=== PATIENT | male | born 1955 | race Hispanic/Latino ===

== ENCOUNTER 2017-07-11 16:05 | Emergency (ER) | payer MEDICARE, MEDICAID ==
[~2017-07-11] VITALS: Ht 175.3 cm; Wt 79.4 kg
[~2017-07-11 16:05] MED LIST: ASPIRIN EC81 MG PO; DICLOFENAC SODI75 MG PO; JANUVIA50 MG PO; LANTUS SOL100 UNIT/1 SUB-Q; LISINOPRIL40 MG PO; LOVASTATIN40 MG PO; METFORMIN HCL1000 MG PO; NORCO 5-325 TA1 EACH PO; VITAMIN D35000 UNIT PO; ZOLPIDEM TARTRAT5 MG PO
--- NOTE | 2017-07-13 22:39 | EKG ---
[facility] [address] [place], [place] [address] Signed Normal sinus rhythm Left axis deviation Abnormal ECG When compared with ECG of 03-OCT-2016 14:15, No significant change was found Confirmed by TRA NÚÑEZ MD ([id number]) on 07/13/2017 10:39:28 PM Electronically Signed By: TRA NÚÑEZ MD 07/13/17 2239 PATIENT NAME: GIN SCALES Electrocardiogram DATE OF : 59 PHYSICIAN: TRA NÚÑEZ MD REPORT #: [id number] REPORT IS CONFIDENTIAL AND NOT TO BE RELEASED WITHOUT AUTHORIZATION
[2017-09-05] MEDS ORDERED: VICTOZA 3-0.6 MG/0.1 SUB-Q (09:29)
[2017-09-05] MEDS ORDERED: VITAMIN B122500 MCG PO (13:10)
== END 2017-07-11 18:25 | disposition home or self-care (01) ==
LOC: ED 16:05
DX: R42 Dizziness and giddiness (principal); E11.9 Type 2 diabetes mellitus without complications; I10 Essential (primary) hypertension; E78.00 Pure hypercholesterolemia, unspecified; F17.200 Nicotine dependence, unspecified, uncomplicated; Z90.49 Acquired absence of other specified parts of digestive tract; Z79.4 Long term (current) use of insulin; Z79.899 Other long term (current) drug therapy
CPT/HCPCS: 80053; 84484; 85025; 93005; 93010; 99284

== ENCOUNTER 2017-10-13 13:42 | Emergency (ER) | payer BC, MEDICARE, MEDICAID ==
[~2017-10-13] VITALS: Ht 175.3 cm; Wt 77.9 kg
--- OUTSIDE RECORDS SUMMARY | ~2017-10-13 | XMS | Clinical Summary ---
Demographics + + + | Address | [address] | | | [place] [address] | + + + | Home Phone | | + + + | Preferred Language | Unknown | + + + | Marital Status | | + + + | Anabaptism Affiliation | Unknown | + + + | Race | Unknown | + + + | Ethnic Group | Unknown | + + + Author + + + | Author | [facility] | + + + | Organization | [facility] | + + + | Address | Unknown | + + + | Phone | Unavailable | + + + Support + + +---------+ + | Name | Relationship | Address | Phone | + + +---------+ + | Jovanna Irizarry | ECON | Unknown | | + + +---------+ + Care Team Providers + +------+ + | Care Shift Commander Name | Role | Phone | + +------+ + | Solomon OtisDavis | PP | | + +------+ + Allergies Not on File Current Medications + + +-------+---------+------+------+-------+ | Prescription | Sig. | Disp. | Refills | Star | End | Statu | | | | | | t | Date | s | | | | | | Date | | | + + +-------+---------+------+------+-------+ | Cholecalciferol | Take 5,000 Units by | | | | | Activ | | 5000 units capsule | mouth daily. | | | | | e | + + +-------+---------+------+------+-------+ | aspirin 81 MG | Take 81 mg by mouth | | | | | Activ | | tablet | daily. | | | | | e | + + +-------+---------+------+------+-------+ | Zolpidem Tartrate | Place 1 tablet under | | | | | Activ | | 5 MG SUBL | the tongue daily. | | | | | e | + + +-------+---------+------+------+-------+ | insulin glargine | Inject 26 Units into | | | | | Activ | | (LANTUS) 100 UNIT/ML | the skin nightly. | | | | | e | | injection | | | | | | | + + +-------+---------+------+------+-------+ | lovastatin | Take 40 mg by mouth | | | | | Activ | | (MEVACOR) 40 MG | nightly. | | | | | e | | tablet | | | | | | | + + +-------+---------+------+------+-------+ | liraglutide | Inject 0.6 mg into | | | | | Activ | | (VICTOZA) 18 MG/3ML | the skin daily. | | | | | e | | injection | | | | | | | + + +-------+---------+------+------+-------+ | lisinopril | Take 40 mg by mouth | | | | | Activ | | (ZESTRIL) 40 MG | daily. | | | | | e | | tablet | | | | | | | + + +-------+---------+------+------+-------+ | metFORMIN | Take 1,000 mg by | | | | | Activ | | (GLUCOPHAGE) 1000 MG | mouth 2 (two) times | | | | | e | | tablet | daily with meals. | | | | | | + + +-------+---------+------+------+-------+ | diclofenac | Take 75 mg by mouth | | | | | Activ | | (VOLTAREN) 75 MG EC | 2 (two) times daily. | | | | | e | | tablet | | | | | | | + + +-------+---------+------+------+-------+ | traZODone | Take 50 mg by mouth | | | | | Activ | | (DESYREL) 50 MG | as needed for Sleep. | | | | | e | | tablet | | | | | | | + + +-------+---------+------+------+-------+ Active Problems + + + | Problem | Noted Date | + + + | Hyperlipidemia | 11/15/2016 | + + + | Hypertension | 11/15/2016 | + + + | Type 2 diabetes mellitus (HCC) | 06/06/2011 | + + + | Thoracic and lumbosacral neuritis | 07/09/2006 | + + + Family History + [...] | | + +-------+ +--------+------+ + + +---------+ + | Alcohol Use | Drinks/We | oz/Week | Comments | | | ek | | | + + +---------+ + | No | | | | + + +---------+ + + + + | Sex Assigned at | Date Recorded | | | | + + + | Not on file | | + + + Last Filed Vital Signs + + + + | Vital Sign | Reading | Time Taken | + + + + | Blood Pressure | 110/74 | 11/15/2016 11:22 AM PDT | + + + + | Pulse | 67 | 11/15/2016 11:22 AM PDT | + + + + | Temperature | - | - | + + + + | Respiratory Rate | - | - | + + + + | Oxygen Saturation | 97% | 11/15/2016 11:22 AM PDT | + + + + | Inhaled Oxygen | - | - | | Concentration | | | + + + + | Weight | 80.6 kg (177 lb 11.2 | 11/15/2016 11:22 AM PDT | | | oz) | | + + + + | Height | 175.3 cm (5' 9") | 11/15/2016 11:22 AM PDT | + + + + | Body Mass Index | 26.24 | 11/15/2016 11:22 AM PDT | + + + + Plan of Treatment + + + + + | Health Maintenance | Due Date | Last Done | Comments | + + + + + | Diabetic Eye Exam | | | | | | 7 | | | + + + + + | Diabetic Foot Exam | | | | | | 7 | | | + + + + + | Hemoglobin A1c | | | | | | 7 | | | + + + + + | Microalbumin | | | | | Screening | 7 | | | + + + + + | Vaccine: | | | | | Dtap/Tdap/Td (1 - | 6 | | | | Tdap) | | | | + + + + + | Vaccine: | | | | | Pneumococcal 19-64 | 6 | | | | (PPSV23 only) Medium | | | | | Risk (1 of 1 - | | | | | PPSV23) | | | | + + + + + | Colon Cancer | | | | | Screening | 7 | | | | (Colonoscopy) | | | | + + + + + | Vaccine: Zoster (#1) | | | | | | 7 | | | + + + + + | Vaccine: Influenza | | | | | (Season Ended) | 8 | | | + + + + + Results Not on filefrom Last 3 Months Insurance + +--------+ +------+-------+ + | Payer | Benefi | Subscriber | Type | Phone | Address | | | t Plan | ID | | | | | | / | | | | | | | Group | | | | | + +--------+ +------+-------+ + | MEDICARE | MEDICA | xxxxxxxxxx | | | [address] | | | [place] | | | | [place], [place] [phone] | | | IP-OP | | | | | + +--------+ +------+-------+ + + +--------+ +--------+ + + | Guarantor Name | Accoun | Relation to | Date | Phone | Billing Address | | | t Type | Patient | of | | | | | | | | | | + +--------+ +--------+ + + | JAYRO IRIZARRY | Person | Self [birth year] Home: | [address] | | | [place] | | [phone] [place] | | | [place] | | | [address] | [phone] | + +--------+ +--------+ + +
--- OUTSIDE RECORDS SUMMARY | ~2017-10-13 | XMS | Clinical Summary ---
Demographics + + + | Address | [address] | | | [place] [address] | + + + | Home Phone | | + + + | Preferred Language | Unknown | + + + | Marital Status | | + + + | Baptist Affiliation | Unknown | + + + [...] Phone | + + +---------+ + | Irizarry,Prakash | ECON | Unknown | | + + +---------+ + Care Team Providers + +------+ + | Care Perinatal Director Name | Role | Phone | + +------+ + PP | Unavailable | + +------+ + Allergies No Known Allergies Current Medications + + +-------+---------+------+------+-------+ | Prescription | Sig. | Disp. | Refills | Star | End | Statu | | | | | | t | Date | s | | | | | | Date | | | + + +-------+---------+------+------+-------+ | fenofibrate | Take 160 mg by mouth | | | 11/2 | | Activ | | (LOFIBRA, TRIGLIDE) | Daily. | | | 03/28 | | e | | 160 mg tablet | | | | 11 | | | + + +-------+---------+------+------+-------+ | ergocalciferol | 1 by mouth daily for | | | / | | Activ | | (ERGOCALCIFEROL) | 7 days, then 1 by | | | 03/28 | | e | | [id number] UNITS capsule | mouth once weekly | | | 11 | | | | | for 12 weeks | | | | | | + + +-------+---------+------+------+-------+ | lisinopril | 40 mg by mouth in am | | | 07/0 | | Activ | | (PRINIVIL, ZESTRIL) | and 20 mg in | | | 01/25 | | e | | 20 mg tablet | evening | | | 11 | | | + + +-------+---------+------+------+-------+ | lamoTRIgine | Take 100 mg by mouth | | | 04/08 | | Activ | | (LAMICTAL) 100 mg | 2 times daily. | | | 10/26 | | e | | tablet | | | | 11 | | | + + +-------+---------+------+------+-------+ | glucose blood | use as directed | | | 04/08 | | Activ | | test strips | daily 250.00 | | | 20 | | e | | (FREESTYLE TEST | | | | 11 | | | | STRIPS) strip | | | | | | | + + +-------+---------+------+------+-------+ | glyBURIDE | Take 2.5 mg by mouth | | | /2 | | Activ | | (DIABETA) 2.5 mg | daily (with | | | 03/28 | | e | | tablet | breakfast). | | | 11 | | | + + +-------+---------+------+------+-------+ | lovastatin | 20 mg by mouth every | | | 11/2 | | Activ | | (MEVACOR) 40 MG | at bedtime | | | /20 | | e | | tablet | | | | 11 | | | + + +-------+---------+------+------+-------+ | metformin | Take 1,000 mg by | | | 05/09 | | Activ | | (GLUCOPHAGE) 1000 MG | mouth 2 times daily. | | | 03/28 | | e | | tablet | | | | 10 | | | + + +-------+---------+------+------+-------+ Active [...] | DEPRESSION/ANXIETY | | + + + Social History + +-------+ [...] | Blood Pressure | 122/74 | 06/06/2011 0000 PST | + + + + | Pulse | - | - | + + + + | Temperature | - | - | + + + + | Respiratory Rate | - | - | + + + + | Oxygen Saturation | - | - | + + + + | Inhaled Oxygen | - | - | | Concentration | | | + + + + | Weight | 76.2 kg (168 lb) | 06/06/2011 0000 PST | + + + + | Height | 175.3 cm (5' 9") | 04/14/2010 0000 PDT | + + + + | Body Mass Index | 24.81 | 06/06/2011 0000 PST | + + + + Plan of Treatment + + + + + | Health Maintenance | Due Date | Last Done | Comments | + + + + + | Hepatitis C | | | | | Screening | 7 | | | + + + + + | Diabetic Eye Exam | | | | | (Bi-Annually) | 5 | | | + + + + [...] | + + + + + | COLON CANCER | | | | | SCREENING | 7 | | | | (COLONOSCOPY EVERY | | | | | 10 YEARS 50-75) | | | | + + + + + | Hemoglobin A1c Q3 | | 04/21/2011, 10/25/2010 | | | Months | 2 | | | + + + + + | Diabetic Foot Exam | | 06/06/2011 | | | | 2 | | | + + + + + | Microalbumin | | 04/21/2011 | | | Screening | 5 | | | + + + + + | Vaccine: Zoster (#1) | | | | | | 7 | | | + + + + + | Vaccine: Influenza | | | | | (Season Ended) | 8 | | | + + + + + Results Not on filefrom Last 3 Months
--- OUTSIDE RECORDS SUMMARY | ~2017-10-13 | XMS | Clinical Summary ---
Demographics + + + | Address | [address] | | | [place] [address] | + + + | Home Phone | | + + + | Preferred Language | Unknown | + + + | Marital Status | | + + + | Gnosticism Affiliation | Unknown | + + + | Race | Unknown | + + + | Ethnic Group | Unknown | + + + Author + + + | Author | [facility] | | | and [place] | + + + | Organization | [facility] | | [...] Team Providers + +------+ + | Care Tank Refinisher Name | Role | Phone | + [...] | 03/28 | | e | | [id number] UNITS capsule | mouth once weekly | [...]
--- OUTSIDE RECORDS SUMMARY | ~2017-10-13 | XMS | Clinical Summary ---
Demographics + + + | Address | [address] | | | [place] [address] | + + + | Home Phone | | + + + | Preferred Language | Unknown | + + + | Marital Status | | + + + | Jewish Affiliation | Unknown | + + + | Race | Unknown | + + + | Ethnic Group | Unknown | + + + Author + + + | Author | [facility] | + + + | Organization | [facility] | + + + | Address | Unknown | + + + | Phone | Unavailable | + + + Support + + +---------+ + | Name | Relationship | Address | Phone | + + +---------+ + | Jovanna Irizarry | ECON | Unknown | | + + +---------+ + Care Team Providers + +------+ + | Care Trolley Cleaner Name | Role | Phone | + [...] | xxxxxxxxxx | | | [address] | | | [place] | | | | [place], [place] [phone] | | | IP-OP | | | [...] | [place] | | | [address] | [phone] | + +--------+ +--------+ + +
[~2017-10-13 13:42] MED LIST changes: +VICTOZA 3-0.6 MG/0.1 SUB-Q; +VITAMIN B122500 MCG PO
== END 2017-10-13 14:55 | disposition home or self-care (01) ==
LOC: ED 13:42
DX: R51 Headache (principal); R42 Dizziness and giddiness; F17.200 Nicotine dependence, unspecified, uncomplicated; Z79.899 Other long term (current) drug therapy
CPT/HCPCS: 99282

== ENCOUNTER 2018-01-07 12:30 | Emergency (ER) | payer BC, MEDICARE ==
[~2018-01-07] VITALS: Ht 175.3 cm; Wt 78.0 kg
[2018-01-07] MEDS ORDERED: BASAGLAR K100 UNIT/1 SUB-Q (12:38)
[2018-01-07] MEDS ORDERED: PROZAC10 MG PO (14:36)
--- NOTE | 2018-01-08 01:14 | EKG ---
[facility] [address] [place], [place] [address] Signed Normal sinus rhythm Normal ECG When compared with ECG of 11-JUL-2017 16:32, No significant change was found Confirmed by JOSE BAKER MD ([id number]) on 01/08/2018 1:13:55 AM Electronically Signed By: JOSE BAKER MD 01/08/18 0114 PATIENT NAME: GIN SCALES Electrocardiogram DATE OF : 59 PHYSICIAN: JOSE BAKER MD REPORT #: [id number] REPORT IS CONFIDENTIAL AND NOT TO BE RELEASED WITHOUT AUTHORIZATION
== END 2018-01-07 14:47 | disposition home or self-care (01) ==
LOC: ED 12:30
DX: F41.9 Anxiety disorder, unspecified (principal); E11.9 Type 2 diabetes mellitus without complications; F64.0 Transsexualism; E78.00 Pure hypercholesterolemia, unspecified; I10 Essential (primary) hypertension; F17.200 Nicotine dependence, unspecified, uncomplicated; Z88.8 Allergy status to other drugs, medicaments and biological substances; Z79.899 Other long term (current) drug therapy; Z79.4 Long term (current) use of insulin; Z79.84 Long term (current) use of oral hypoglycemic drugs
CPT/HCPCS: 80053; 84484; 85025; 93005; 93010; 99284

== ENCOUNTER 2019-06-13 15:34 | Emergency (ER) | payer BC, MEDICARE ==
[~2019-06-13] VITALS: Ht 175.3 cm; Wt 78.0 kg
--- OUTSIDE RECORDS SUMMARY | ~2019-06-13 | XMS | Encounter Summary ---
Demographics + + + | Address | [address] | | | [place] [address] | + + + | Home Phone | | + + + | Preferred Language | Unknown | + + + | Marital Status | | + + + | Jew Affiliation | Unknown | + + + | Race | Unknown | + + + | Ethnic Group | Unknown | + + + Author + + + | Author | [facility] | | | and [place] | + + + | Organization | [facility] | | | and [place] | + + + | Address | Unknown | + + + | Phone | Unavailable | + + + Support + + +---------+ + | Name | Relationship | Address | Phone | + + +---------+ + | Prakash Irizarry | ECON | Unknown | | + + +---------+ + Care Team Providers + +------+ + | Care Ribbing Machine Operator Name | Role | Phone | + +------+ + PCP | Unavailable | + +------+ + Encounter Details +--------+ + + + + | Date | Type | Department | Care Team | Description | +--------+ + + + + | 10/05/ | Hospital | [facility] | Annette Roman | | | 2009 | Encounter | [facility] | L, COMPUTATIONAL SCIENCES PROFESSOR [address] | | | | | [address] | [place] | | | | | [place] | [address] | | | | | [address] | | | | | | [phone] | | | +--------+ + + + + Social History + +-------+ +--------+------+ | Tobacco Use | Types | Packs/Day | Years | Date | | | | | Used | | + +-------+ +--------+------+ | Never Assessed | | | | | + +-------+ +--------+------+ + + + | Sex Assigned at | Date Recorded | | | | + + + | Not on file | | + + + + + + + | Job Start Date | Occupation | Industry | + + + + | Not on file | Not on file | Not on file | + + + + + + + + | Travel History | Travel Start | Travel End | + + + + + + | No recent travel history available. | + + documented as of this encounter Plan of Treatment Not on filedocumented as of this encounter Visit Diagnoses Not on filedocumented in this encounter"
--- OUTSIDE RECORDS SUMMARY | ~2019-06-13 | XMS | Clinical Summary ---
Demographics + + + | Address | [address] | | | [place] [address] | + + + | Home Phone | | + + + | Preferred Language | Unknown | + + + | Marital Status | | + + + | Restoration Affiliation | Unknown | + + + | Race | Unknown | + + + | Ethnic Group | Unknown | + + + Author + + + | Author | [facility] | | | and [place] | + + + | Organization | [facility] | | | and [...] Team Providers + +------+ + | Care Strip Picker Name | Role | Phone | + +------+ + | Otis Carbajal NP | PCP | | + +------+ + Allergies No Known Allergies Medications + + + +---------+------+------+-------+ | Medication | Sig | Dispensed | Refills | Star | End | Statu | | | | | | t | Date | s | | | | | | Date | | | + + + +---------+------+------+-------+ | fenofibrate | Take 160 mg by mouth | | 0 | 11/2 | | Activ | | (LOFIBRA, TRIGLIDE) | Daily. | | | 03/28 | | e | | 160 mg tablet | | | | 11 | | | + + + +---------+------+------+-------+ | ergocalciferol | 1 by mouth daily for | | 0 | 11/2 | | Activ | | (ERGOCALCIFEROL) | 7 days, then 1 by | | | 03/28 | | e | | [id number] UNITS capsule | mouth once weekly | | | 11 | | | | | for 12 weeks | | | | | | + + + +---------+------+------+-------+ | lisinopril | 40 mg by mouth in am | | 0 | 07/0 | | Activ | | (PRINIVIL, ZESTRIL) | and 20 mg in | | | 01/25 | | e | | 20 mg tablet | evening | | | 11 | | | + + + +---------+------+------+-------+ | lamoTRIgine | Take 100 mg by mouth | | 0 | 10/1 | | Activ | | (LAMICTAL) 100 mg | 2 times daily. | | | 4/20 | | e | | tablet | | | | 11 | | | + + + +---------+------+------+-------+ | glucose blood | use as directed | | 0 | 10/ | | Activ | | test strips | daily 250.00 | | | /20 | | e | | (FREESTYLE TEST | | | | 11 | | | | STRIPS) strip | | | | | | | + + + +---------+------+------+-------+ | glyBURIDE | Take 2.5 mg by mouth | | 0 | 11/2 | | Activ | | (DIABETA) 2.5 mg | daily (with | | | 03/28 | | e | | tablet | breakfast). | | | 11 | | | + + + +---------+------+------+-------+ | lovastatin | 20 mg by mouth every | | 0 | 11/2 | | Activ | | (MEVACOR) 40 MG | at bedtime | | | 9/20 | | e | | tablet | | | | 11 | | | + + + +---------+------+------+-------+ | metformin | Take 1,000 mg by | | 0 | 05/09 | | Activ | | (GLUCOPHAGE) 1000 MG | mouth 2 times daily. | | | 03/28 | | e | | tablet | | | | 10 | | | + + + +---------+------+------+-------+ Active Problems + + + | Problem | Noted Date | + + + | DIABETES MELLITUS, TYPE II, UNCONTROLLED | 06/06/2011 | + + + | FREQUENCY, URINARY | 04/21/2011 | + + + | MOOD DISORDER | 12/16/2010 | + + + | INSOMNIA | 11/25/2010 | + + + | PARANOIA | 11/25/2010 | + + + + + | Overview: ICD-10 Record update | + + + + + | PALPITATIONS | 08/25/2010 | + + + | PARESTHESIA | 08/25/2010 | + + + | PAIN IN JOINT, HAND | 06/06/2010 | + + + | LOCALIZED SUPERFICIAL SWELLING MASS OR LUMP | 06/06/2010 | + + + | VERTIGO | 04/07/2010 | + + + | MEMORY LOSS | 04/07/2010 | + + + | DYSPHAGIA | 04/07/2010 | + + + | G E R D | 04/07/2010 | + + + | HEADACHE, TENSION | 04/07/2010 | + + + | DIABETES MELLITUS, TYPE II | 01/06/2009 | + + + | BACK PAIN, LUMBAR, WITH RADICULOPATHY | 07/09/2006 | + + + | VITAMIN D DEFICIENCY | | + + + | HYPERLIPIDEMIA | | + + + | HYPERTENSION | | + + + | DEPRESSION/ANXIETY | | + + + Family History + +------+ + + | Relation | Name | Status | Comments | + +------+ + + | Father | | | | + +------+ + + | Sister | | Alive | | + +------+ + + Social History + +-------+ +--------+------+ | Tobacco Use | Types | Packs/Day | Years | Date | | | | | Used | | + +-------+ +--------+------+ | Former Smoker | | | | | + +-------+ [...] recent travel history available. | + + Last Filed Vital Signs + + + + + | Vital Sign | Reading | Time Taken | Comments | + + + + + | Blood Pressure | 110/74 | 11/15/2016 11:32 AM | | | | | PDT | | + + + + + | Pulse | 67 | 11/15/2016 11:32 AM | | | | | PDT | | + + + + + | Temperature | - | - | | + + + + + | Respiratory Rate | - | - | | + + + + + | Oxygen Saturation | - | - | | + + + + + | Inhaled Oxygen | - | - | | | Concentration | | | | + + + + + | Weight | 80.6 kg (177 lb 11.2 | 11/15/2016 11:32 AM | | | | oz) | PDT | | + + + + + | Height | 175.3 cm (5' 9") | 11/15/2016 11:32 AM | | | | | PDT | | + + + + + | Body Mass Index | 26.24 | 11/15/2016 11:32 AM | | | | | PDT | | + + + + + Plan of Treatment + + + + + | Health Maintenance | Due Date | Last Done | Comments | + + + + + | Vaccine: | | | | | Dtap/Tdap/Td (1 - | 6 | | | | Tdap) | | | | + + + + + | Vaccine: Zoster (1 | | | | | of 2) | 7 | | | + + + + + | Vaccine: Influenza | | | | | (#1) | 9 | | | + + + + + Results Not on filefrom Last 3 Months
--- OUTSIDE RECORDS SUMMARY | ~2019-06-13 | XMS | Encounter Summary ---
Demographics + + + | Address | [address] | | | [place] [address] | + + + | Home Phone | | + + + | Preferred Language | Unknown | + + + | Marital Status | | + + + | Christian Affiliation | Unknown | + + + | Race | Unknown | + + + | Ethnic Group | Unknown | + + + Author + + + | Author | [facility] | | | and [place] | + + + | Organization | [facility] | | [...] Team Providers + +------+ + | Care Activity Therapy Teacher Name | Role | Phone | + +------+ + | Annette Roman | PCP | | + +------+ + Reason for Visit +--------+ + | Reason | Comments | +--------+ + | Other | | +--------+ + Encounter Details +--------+ + + + + | Date | Type | Department | Care Team | Description | +--------+ + + + + | 12/25/ | Telephone | [facility] | Annette Roman | Other | | 2013 | | [facility] | L, [employer]YROLL AND BENEFITS SPECIALIST [address] | | | | | [address] | [place] [place] | | | | | [place], [place] | [address] | | | | | [address] | | | | | | [phone] | | | +--------+ + + + [...]
--- OUTSIDE RECORDS SUMMARY | ~2019-06-13 | XMS | Encounter Summary ---
Demographics + + + | Address | [facility] [address] | | | [place] [address] | + + + | Home Phone | | + + + | Preferred Language | Unknown | + + + | Marital Status | | + + + | Mormonism Affiliation | Unknown | + + + | Race | Unknown | + + + | Ethnic Group | Unknown | + + + Author + + + | Author | [facility] | | | and [place] | + + + | Organization | [facility] [...] Team Providers + +------+ + | Care Carpet Loom Fixer Name | Role | Phone | + +------+ + | Annette Roman | PCP | | + +------+ + Encounter Details +--------+ + + + + | Date | Type | Department | Care Team | Description | +--------+ + + + + | 10/25/ | Hospital | [facility] | Annette Roman | | | 2011 | Encounter | MED CTR LAB[facility]ATORY | L, HEAD AUTOMATIC SAWYER [address] | | | | | [address] | [place] [place] | | | | | [place] | [address] | | | | | [address] | | | | | | [phone] | | | +--------+ + + + [...] + + documented as of this encounter Medications at Time of Discharge + + + +---------+ + + | Medication | Sig | Dispensed | Refills | Start | End Date | | | | | | Date | | + + + +---------+ + + | metformin | Take 1,000 mg by | | 0 | 05/27/20 | | | (GLUCOPHAGE) 1000 MG | mouth 2 times daily. | | | 10 | | | tablet | | | | | | + + + +---------+ + + documented as of this encounter Plan of Treatment Not on filedocumented as of this encounter Procedures + +--------+ + + + | Procedure Name | Priori | Date/Time | Associated Diagnosis | Comments | | | ty | | | | + +--------+ + + + | LIPID PROFILE | Routin | 10/25/2010 | | Results for this | | | e | 8:52 AM | | procedure are in the | | | | PDT | | results section. | + +--------+ + + + | HEMOGLOBIN A1C | Routin | 10/25/2010 | | Results for this | | | e | 8:52 AM | | procedure are in the | | | | PDT | | results section. | + +--------+ + + + | COMPREHENSIVE | Routin | 10/25/2010 | | Results for this | | METABOLIC PANEL | e | 8:52 AM | | procedure are in the | | | | PDT | | results section. | + +--------+ + + + documented in this encounter Results Hemoglobin A1C (10/25/2010 8:52 AM PDT) + +---------+ + + + | Component | Value | Ref Range | Performed | Pathologist | | | | | At | Signature | + +---------+ + + + | Hemoglobin | 5.9 (H) | 4.3 - 5.8 % | [facility] | | | A1c | | | [facility] | | | | | [facility] | | | | | | CENTER - | | | | | | LABORATORY | | + +---------+ + + + + + | Specimen | + + | | + + + + + + + | Performing | Address | City/State/Zipcode | Phone Number | | Organization | | | | + + + + + | [facility] | [address] | [place] | [phone] | | [facility] | | [address] | | | - LABORATORY | | | | + + + + + | [facility] | [address] | [place] | | | [facility] | | [address] | | | - LABORATORY | | | | + + + + + Lipid Profile (10/25/2010 8:52 AM PDT) + + + + + + | Component | Value | Ref Range | Performed | Pathologist | | | | | At | Signature | + + + + + + | Triglycerid | 340 (H) | 35 - 160 mg/dL | [facility] | | | es | | | [facility] | | | | | | MEDICAL | | | | | | CENTER - | | | | | | LABORATORY | | + + + + + + | Cholesterol | 202 (H) | 150 - 200 mg/dL | [facility] | | | | | | [facility] | | | | | | MEDICAL | | | | | | CENTER - | | | | | | LABORATORY | | + + + + + + | HDL | 25 (L) | 27 - 67 mg/dL | [facility] | | | | | | [facility] | | | | | [facility] | | | | | | CENTER - | | | | | | LABORATORY | | + + + + + + | LDL, | 109 | <130 mg/dL | [facility] | | | Calculated | | | [facility] | | | | | | MEDICAL | | | | | | CENTER - | | | | | | LABORATORY | | + + + + + + | Chol/HDL | 8.1Comment: | | [facility] | | | Ratio | | | [facility] | | | | | | MEDICAL | | | | ------- RISK CATEGORY: | | CENTER - | | | | CHOL/HDL * T.CHOL * LDL | | LABORATORY | | | | CHOL * HDL CHOL | | | | | | | | | | | | RATIO DESIRABLE: (M) | | | | | | 4.0-6.7 <200 | | | | | | <130 >50 | | | | | | (F) | | | | | | 3.7-4.2 BORDERLINE:(M) | | | | | | 6.7-7.4 200-240 | | | | | | 130-160 <45 | | | | | | (F) | | | | | | 4.2-5.5 HIGH RISK: (M) | | | | | | >7.4 >240 | | | | | | >160 <35 | | | | | | (F) | | | | | | >5.5 | | | | | | | | | | | | | | | | | | --------- | | | | + + + + + + + + | Specimen | + + | | + + + + + + + | Performing | Address | City/State/Zipcode | Phone Number | | Organization | | | | + + + + + | [facility] | [address] | [place] | [phone] | | [facility] | | [address] | | | - LABORATORY | | | | + + + + + | [facility] | [address] | [place] | | | [facility] | | [address] | | | - LABORATORY | | | | + + + + + Comprehensive Metabolic Panel (10/25/2010 8:52 AM PDT) + + + + + + | Component | Value | Ref Range | Performed | Pathologist | | | | | At | Signature | + + + + + + | Glucose | 140 (H) | 70 - 109 mg/dL | [facility] | | | | | | [facility] | | | | | | MEDICAL | | | | | | CENTER - | | | | | | LABORATORY | | + + + + + + | Calcium | 8.6 | 8.3 - 10.5 | [facility] | | | | | mg/dL | [facility] | | | | | | MEDICAL | | | | | | CENTER - | | | | | | LABORATORY | | + + + + + + | Alkaline | 71 | 40 - 110 IU/L | [facility] | | | Phosphatase | | | [facility] | | | | | | MEDICAL | | | | | | CENTER - | | | | | | LABORATORY | | + + + + + + | AST | 26 | 10 - 42 IU/L | [facility] | | | | | | [facility] | | | | | | MEDICAL | | | | | | CENTER - | | | | | | LABORATORY | | + + + + + + | ALT | 45 | 6 - 45 IU/L | [facility] | | | | | | [facility] | | | | | | MEDICAL | | | | | | CENTER - | | | | | | LABORATORY | | + + + + + + | Bilirubin | 0.8 | 0.2 - 1.0 mg/dL | [facility] | | | Total | | | [facility] | | | | | | MEDICAL | | | | | | CENTER - | | | | | | LABORATORY | | + + + + + + | Total | 6.6 | 6.0 - 7.8 gm/dL | [facility] | | | Protein | | | [facility] | | | | | | MEDICAL | | | | | | CENTER - | | | | | | LABORATORY | | + + + + + + | Albumin | 4.1 | 3.2 - 5.0 gm/dL | [facility] | | | | | | [facility] | | | | | [facility]ICAL | | | | | | CENTER - | | | | | | LABORATORY | | + + + + + + | BUN | 8 | 7 - 18 mg/dL | [facility] | | | | [facility] | | | | | | [facility] | | | | | | CENTER - | | | | | | LABORATORY | | + + + + + + | Creatinine | 0.70 | 0.60 - 1.30 | [facility] | | | | | mg/dL | [facility] | | | | | | MEDICAL | | | | | | CENTER - | | | | | | LABORATORY | | + + + + + + | Estimated | >60Comment: For | >60 mL/min/A | [facility] | | | GFR | -Americans, | | [facility] | | | | please multiply the | | MEDICAL | | | | result by 1.210 | | CENTER - | | | | This is an estimated | | LABORATORY | | | | GFR and is based on | | | | | | a standard body | | | | | | mass and serum | | | | | | creatinine | | | | + + + + + + | BUN/Creatin | 11.4 (L) | 12 - 20 | [facility] | | | ine Ratio | | | [facility] | | | | | | MEDICAL | | | | | | CENTER - | | | | | | LABORATORY | | + + + + + + | Na | 139 | 136 - 149 mEq/L | [facility] | | | | | | [facility] | | | | | | MEDICAL | | | | | | CENTER - | | | | | | LABORATORY | | + + + + + + | K | 4.0 | 3.5 - 5.1 mEq/l | [facility] | | | | | | [facility] | | | | | MED[facility] | | | | | | CENTER - | | | | | | LABORATORY | | + + + + + + | Cl | 105 | 98 - 109 mEq/l | [facility] | | | | | | [facility] | | | | | | MEDICAL | | | | | | CENTER - | | | | | | LABORATORY | | + + + + + + | CO2 | 28 | 24 - 31 mEq/L | [facility] | | | | | | [facility] | | | | | | MEDICAL | | | | | | CENTER - | | | | | | LABORATORY | | + + + + + + | Anion Gap | 10.0 | 6.0 - 17.0 | [facility] | | | | | | [facility] | | | | | | MEDICAL | | | | | | CENTER - | | | | | | LABORATORY | | + + + + + + + + | Specimen | + + | | + + + + + + + | Performing | Address | City/State/Zipcode | Phone Number | | Organization | | | | + + + + + | [facility] | [address] | [place] | [phone] | | [facility] | | [address] | | | - LABORATORY | | | | + + + + + | [facility] | [address] | [place], [place] | | | [facility] | | [address] | | | - LABORATORY | | | | + + + + + documented in this encounter Visit Diagnoses Not on filedocumented in this encounter"
--- OUTSIDE RECORDS SUMMARY | ~2019-06-13 | XMS | Encounter Summary ---
Demographics + + + | Address | [facility] [address] | | | [place] [address] | + + + | Home Phone | | + + + | Preferred Language | Unknown | + + + | Marital Status | | + + + | Protestant Affiliation | Unknown | + + + | Race | Unknown | + + + | Ethnic Group | Unknown | + + + Author + + + | Author | [facility] | | | and [place] | + + + | Organization | [facility] | | [...] Team Providers + +------+ + | Care Medical Record Librarians Teacher Name | Role | Phone | + +------+ + | Annette Roman | PCP | | + +------+ + Encounter Details +--------+ + + + + | Date | Type | Department | Care Team | Description | +--------+ + + + + | 04/20/ | Hospital | [facility] | | | | 2009 | Encounter | MED CTR GENERIC OP | | | | | | CONV DEPT [address] | | | | | | [place], | | | | | | [place] [address] | | | | | | [phone] | | | +--------+ + + + [...]
--- OUTSIDE RECORDS SUMMARY | ~2019-06-13 | XMS | Encounter Summary ---
Demographics + + + | Address | [facility] [address] | | | [place] [address] | + + + | Home Phone | | + + + | Preferred Language | Unknown | + + + | Marital Status | | + + + | Worship Affiliation | Unknown | + + + | Race | Unknown | + + + | Ethnic Group | Unknown | + + + Author + + + | Author | [facility] | | | and [place] | + + + | Organization | [facility] | | | [...] Team Providers + +------+ + | Care Electronic Prepress System Operator Name | Role | Phone | + +------+ + | Annette Roman | PCP | | + +------+ + Encounter Details +--------+ + + + + | Date | Type | Department | Care Team | Description | +--------+ + + + + | 04/21/ | Hospital | [facility] | Annette Roman | | | 2011 | Encounter | MED CTR LABORATORY | L, CARDIAC CATH TECHNOLOGIST [address] | | | | | [address] | [address] [place] | | | | | [place] | [address] | | | | | [address] | | | | | | [phone] | | | +--------+ + + + [...] + + + +---------+ + + | glucose blood | use as directed | | 0 | 04/21/20 | | | test strips | daily 250.00 | | | 11 | | | (FREESTYLE TEST | | | | | | | STRIPS) strip | | | | | | + + + +---------+ + + | lamoTRIgine | Take 100 mg by mouth | | 0 | 04/21/20 | | | (LAMICTAL) 100 mg | 2 times daily. | | | 11 | | | tablet | | | | | | + + + +---------+ + + | lisinopril | 40 mg by mouth in am | | 0 | 01/13/20 | | | (PRINIVIL, ZESTRIL) | and 20 mg in | | | 11 | | | 20 mg tablet | evening | | | | | + + [...] | + +--------+ + + + | MICROALBUMIN/CREATIN | Routin | 04/21/2011 | | Results for this | | INE RATIO, URINE | e | 10:02 AM | | procedure are in the | | TEST | | PDT | | results section. | + +--------+ + + + | LIPID PROFILE | Routin | 04/21/2011 | | Results for this | | | e | 10:01 AM | | procedure are in the | | | | PDT | | results section. | + +--------+ + + + | HEMOGLOBIN A1C | Routin | 04/21/2011 | | Results for this | | | e | 10:01 AM | | procedure are in the | | | | PDT | | results section. | + +--------+ + + + | COMPREHENSIVE | Routin | 04/21/2011 | | Results for this | | METABOLIC PANEL | e | 10:01 AM | | procedure are in the | | | | PDT | | results section. | + +--------+ + + + documented in this encounter Results Microalbumin/Creatinine Ratio, Urine (04/21/2011 10:02 AM PDT) + + + + + + | Component | Value | Ref Range | Performed | Pathologist | | | | | At | Signature | + + + + + + | Microalbumi | 40.0 (H) | <18 mg/L | [facility] | | | n, Urine, | | | [facility] | | | Random | | | MEDICAL | | | | | | CENTER - | | | | | | LABORATORY | | + + + + + + | Creatinine, | 163.53 | mg/dL | [facility] | | | Urine | | | [facility] | | | | | | MEDICAL | | | | | | CENTER - | | | | | | LABORATORY | | + + + + + + | Microalb | 24Comment: | <30 mg/gm Cr | [facility] | | | Creat Ratio | <30 MG/G - NORMAL, | | [facility] | | | | REPEAT YEARLY | | MEDICAL | | | | 30-300 MG/G - INCREASED | | CENTER - | | | | RISK FROM DIABETIC | | LABORATORY | | | | NEPHROPATHY. | | | | | | TWO | | | | | | OF THREE A/C RATIOS IN | | | | | | THIS RANGE | | | | | | | | | | | | INDICATE | | | | | | MICROALBUMINURIA AND | | | | | | DIABETIC | | | | | | | | | | | | NEPHROPATHY. | | | | | | >300 MG/G - TWO OF | | | | | | THREE A/C RATIOS IN THIS | | | | | | RANGE | | | | | | CONFIRMS | | | | | | OVERT CLINICAL | | | | | | NEPHROPATHY. | | | | + + + + + + + + | Specimen | + + | | + + + + + + + | Performing | Address | City/State/Zipcode | Phone Number | | Organization | | | | + + + + + | [facility] | [address] | [place] | [phone] | | [facility] | | [address] | | | - LABORATORY | | | | + + + + + | [facility] | [address] | [place] | | | [facility] | | [address] | | | - LABORATORY | | | | + + + + + Hemoglobin A1C (04/21/2011 10:01 AM PDT) + + + + + + | Component | Value | Ref Range | Performed | Pathologist | | | | | At | Signature | + + + + + + | Hemoglobin | 11.0 (H)Comment: | 4.3 - 5.8 % | [facility] | | | A1c | DIABETIC PATIENT RANGES: | | [facility] | | | | 6.2-7.0% = Well | | MEDICAL | | | | Controlled | | CENTER - | | | | | | LABORATORY | | | | 7.0-9.0% = | | | | | | Intermediate | | | | | | | | | | | | | | | | | | >9.0% = Poorly | | | | | | Controlled | | | | + + + + + + + + | Specimen | + + | | + + + + + + + | Performing | Address | City/State/Zipcode | Phone Number | | Organization | | | | + + + + + | [facility] | [address] | [place], [place] | [phone] | | [facility] | | [address] | | | - LABORATORY | | | | + + + + + | [facility] | [address] | [place], [place] | | | [facility] | | [address] | | | - LABORATORY | | | | + + + + + Lipid Profile (04/21/2011 10:01 AM PDT) + + + + + + | Component | Value | Ref Range | Performed | Pathologist | | | | | At | Signature | + + + + + + | Triglycerid | 247 (H) | 35 - 160 mg/dL | [facility] | | | es | | | [facility] | | | | | | MEDICAL | | | | | | CENTER - | | | | | | LABORATORY | | + + + + + + | Cholesterol | 219 (H) | 150 - 200 mg/dL | [facility] | | | | | | [facility] | | | | | | MEDICAL | | | | | | CENTER - | | | | | | LABORATORY | | + + + + + + | HDL | 34 | 27 - 67 mg/dL | [facility] | | | | | | [facility] | | | | | | MEDICAL | | | | | | CENTER - | | | | | | LABORATORY | | + + + + + + | LDL, | 136 (H) | <130 mg/dL | [facility] | | | Calculated | | | [facility] | | | | | | MEDICAL | | | | | | CENTER - | | | | | | LABORATORY | | + + + + + + | Chol/HDL | 6.4Comment: | | [facility] | | | Ratio [...] + | [facility] | [address] | [place] | [phone] | | [facility] | | [address] | | | - LABORATORY | | | | + + + + + | [facility] | [address] | [place] | | | [facility] | | [address] | | | - LABORATORY | | | | + + + + + Comprehensive Metabolic Panel (04/21/2011 10:01 AM PDT) + + + + + + | Component | Value | Ref Range | Performed | Pathologist | | | | | At | Signature | + + + + + + | Glucose | 290 (H) | 70 - 109 mg/dL | [facility] | | | | | | [facility] | | | | | | MEDICAL | | | | | | CENTER - | | | | | | LABORATORY | | + + + + + + | Calcium | 9.0 | 8.3 - 10.5 | [facility] | | | | | mg/dL | [facility] | | | | | | MEDICAL | | | | | | CENTER - | | | | | | LABORATORY | | + + + + + + | Alkaline | 99 | 40 - 110 IU/L | [facility] [...] + + + + | ALT | 48 (H) | 6 - 45 IU/L | [facility] | | | | | | [facility] | | | | | | MEDICAL | | | | | | CENTER - | | | | | | LABORATORY | | + + + + + + | Bilirubin | 0.9 | 0.2 - 1.0 mg/dL | [facility] | | | Total | | | [facility] | | | | | | MEDICAL | | | | | | CENTER - | | | | | | LABORATORY | | + + + + + + | Total | 6.8 | 6.0 - 7.8 gm/dL | [facility] | | | Protein | | | [facility] | | | | | | MEDICAL | | | | | | CENTER - | | | | | | LABORATORY | | + + + + + + | Albumin | 4.2 | 3.2 - 5.0 gm/dL | [facility] | | | | | | [facility] | | | | | | MEDICAL | | | | | | CENTER - | | | | | | LABORATORY | | + + + + + + | BUN | 9 | 7 - 18 mg/dL | [facility] | | | | | | [facility] | | | | | | MEDICAL | | | | | | CENTER - | | | | | | LABORATORY | | + + + + + + | Creatinine | 0.69 | 0.60 - 1.30 | [facility] | | | | | mg/dL | [...] | | GFR and is based on a | | | | | | standard adult | | | | | | body mass (A=1.73m2) and | | | | | | serum creatinine | | | | + + + + + + | BUN/Creatin | 13.0 | 12 - 20 | [facility] | | | ine Ratio | | | [facility] | | | | | | [...] + + + + | K | 4.1 | 3.5 - 5.1 mEq/l | [facility] | | | | | | [facility] | | | | | | MEDICAL | | | | | | CENTER - | | | | | | LABORATORY | | + + + + + + | Cl | 106 | 98 - 109 mEq/l | [facility] [...] + + + | Anion Gap | 9.1 | 6.0 - 17.0 | [facility] | [...] + | [facility] | [address] | [place] | [phone] | | [facility] | | [address] | | | - LABORATORY | | | | + + + + + | [facility] | [address] | [place] | | | [facility] | | [address] | | | - LABORATORY | | | | + + + + + documented in this encounter Visit Diagnoses Not on filedocumented in this encounter"
--- OUTSIDE RECORDS SUMMARY | ~2019-06-13 | XMS | Encounter Summary ---
Demographics + + + | Address | [facility] [address] | | | [place] [address] | + + + | Home Phone | | + + + | Preferred Language | Unknown | + + + | Marital Status | | + + + | Hoahaoism Affiliation | Unknown | + + + | Race | Unknown | + + + | Ethnic Group | Unknown | + + + Author + + + | Author | [facility] | | | and [place] | + + + | Organization | [facility] | | | [...] Team Providers + +------+ + | Care Engineering Lecturer Name | Role | Phone | + +------+ + PCP | Unavailable | + +------+ + Encounter Details +--------+ + + + + | Date | Type | Department | Care Team | Description | +--------+ + + + + | 03/06/ | [facility] | [facility] | | | | 1990 | Encounter | MED CTR EMERGENCY | | | | | | CENTER [address] | | | | | | [place] | | | | | | [address] | | | | | | [phone] | | | +--------+ + + + [...]
--- OUTSIDE RECORDS SUMMARY | ~2019-06-13 | XMS | Encounter Summary ---
Demographics + + + | Address | [facility] [address] | | | [place] [address] | + + + | Home Phone | | + + + | Preferred Language | Unknown | + + + | Marital Status | | + + + | Temple Affiliation | Unknown | + + + | Race | Unknown | + + + | Ethnic Group | Unknown | + + + Author + + + | Author | [facility] | | | and [place] | + + + | Organization | [facility] | | [...] Team Providers + +------+ + | Care Labor Employment Associate Name | Role | Phone | + +------+ + | Annette Roman | PCP | | + +------+ + Encounter Details +--------+ + + + + | Date | Type | Department | Care Team | Description | +--------+ + + + + | 06/14/ | Hospital | [facility] | Jimmie Kearns, | | | 2009 | Encounter | MED CTR LABORATORY | PA-C [address] | | | | | [address] [place] | [address] [place] | | | | | [place], [place] | [place] [address] | | | | | [address] | [phone] | | | | | [phone] | | | +--------+ + + + [...]
--- OUTSIDE RECORDS SUMMARY | ~2019-06-13 | XMS | Encounter Summary ---
Demographics + + + | Address | [facility] [address] | | | [place] [address] | + + + | Home Phone | | + + + | Preferred Language | Unknown | + + + | Marital Status | | + + + | Sikhism Affiliation | Unknown | + + + | Race | Unknown | + + + | Ethnic Group | Unknown | + + + Author + + + | Author | [facility] | | | and [place] | + + + | Organization | [facility] | | | [...] Team Providers + +------+ + | Care Associate Relations Specialist Name | Role | Phone | + +------+ + PCP | Unavailable | + +------+ + Encounter Details +--------+ + + + + | Date | Type | Department | Care Team | Description | +--------+ + + + + | 01/04/ | [facility] | [facility] | Annette Roman | | | 2009 | Encounter | MED CTR LABORATORY | L, PILE HEADER [address] | | | | | [address] [place] | [place] | | | | | [place] | [address] | | | | | [address] | | | | | | [phone] | | | +--------+ + + + [...]
--- OUTSIDE RECORDS SUMMARY | ~2019-06-13 | XMS | Encounter Summary ---
Demographics + + + | Address | [facility] [address] | | | [place] [address] | + + + | Home Phone | | + + + | Preferred Language | Unknown | + + + | Marital Status | | + + + | Jewish Affiliation | Unknown | + + + | Race | Unknown | + + + | Ethnic Group | Unknown | + + + Author + + + | Author | [facility] | | | and [place] | + + + | Organization | [facility] | | | [...] Team Providers + +------+ + | Care Application Tester Name | Role | Phone | + +------+ + | Annette Roman | PCP | | + +------+ + Encounter Details +--------+ + + + + | Date | Type | Department | Care Team | Description | +--------+ + + + + | 04/07/ | Hospital | [facility] | Annette Roman | | | 2009 | Encounter | MED CTR LABORATORY | L, CHANNEL DEVELOPMENT MANAGER [address] | | | | | [address] [place] | [address] [place] | | | | | [place] | [address] | | | | | [address] | | | | | | [phone] | | | +--------+ + + + [...]
--- OUTSIDE RECORDS SUMMARY | ~2019-06-13 | XMS | Encounter Summary ---
Demographics + + + | Address | [facility] [address] | | | [place] [address] | + + + | Home Phone | | + + + | Preferred Language | Unknown | + + + | Marital Status | | + + + | Congregational Affiliation | Unknown | + + + | Race | Unknown | + + + | Ethnic Group | Unknown | + + + Author + + + | Author | [facility] | | | and [place] | + + + | Organization | [facility] [...] Team Providers + +------+ + | Care Char Filter Operator Name | Role | Phone | + +------+ + | Annette Roman | PCP | | + +------+ + Encounter Details +--------+ + + + + | Date | Type | Department | Care Team | Description | +--------+ + + + + | 10/25/ | Hospital | [facility] | Annette Roman | | | 2011 | Encounter | [facility] | L, [employer] [address] | | | | | [address] | [address] [place] | | | | | [place] | [address] | | | | | [id number] | | | | | | [phone] | | | +--------+ + + + [...] [address] | [place] | [phone] | | [facility] | | [address] | | | - LABORATORY | | | | + + + + + | [facility] | [address] | [place] | | | [facility] | | [address] | | | - LABORATORY | | [...] (L) | 27 - 67 mg/dL | [facility] | | | | | | ST. [...] + | [facility] | [address] | [place] | [phone] | | [facility] | | [address] | | | - LABORATORY | | | | + + + + + | [facility] | [address] | [place] | | | [facility] | | [address] | | | - LABORATORY | | [...] 8 | 7 - 18 mg/dL | [facility] | | | | | | [facility] [...] + | [facility] | [address] | [place] | [phone] | | [facility] | | [address] | | | - LABORATORY | | | | + + + + + | [facility] | [address] | [place], [place] | | | [facility] | | [address] | | | - LABORATORY | | | | + + + + + documented in this encounter Visit Diagnoses Not on filedocumented in this encounter"
--- OUTSIDE RECORDS SUMMARY | ~2019-06-13 | XMS | Encounter Summary ---
Demographics + + + | Address | [facility] [address] | | | [place] [address] | + + + | Home Phone | | + + + | Preferred Language | Unknown | + + + | Marital Status | | + + + | Amish Affiliation | Unknown | + + + | Race | Unknown | + + + | Ethnic Group | Unknown | + + + Author + + + | Author | [facility] | | | and [place] | + + + | Organization | 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
--- OUTSIDE RECORDS SUMMARY | ~2019-06-13 | XMS | Encounter Summary ---
Demographics + + + | Address | [facility] [address] | | | [place] [address] | + + + | Home Phone | | + + + | Preferred Language | Unknown | + + + | Marital Status | | + + + | Yarsani Affiliation | Unknown | + + + | Race | Unknown | + + + | Ethnic Group | Unknown | + + + Author + + + | Author | [facility] | | | and [place] | + + + | Organization | [facility] | | | [...] Team Providers + +------+ + | Care Field Software Engineer Name | Role | Phone | + +------+ + PCP | Unavailable | + +------+ + Encounter Details +--------+ + + + + | Date | Type | Department | Care Team | Description | +--------+ + + + + | 01/13/ | [facility] | [facility] | Annette Roman | | | 2008 | Encounter | MED CTR GENERIC OP | L, 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
--- OUTSIDE RECORDS SUMMARY | ~2019-06-13 | XMS | Encounter Summary ---
Demographics + + + | Address | [facility] [address] | | | [place] [address] | + + + | Home Phone | | + + + | Preferred Language | Unknown | + + + | Marital Status | | + + + | Samaritan Affiliation | Unknown | + + + | Race | Unknown | + + + | Ethnic Group | Unknown | + + + Author + + + | Author | [facility] | | | and [place] | + + + | Organization | [facility] | | | [...] Team Providers + +------+ + | Care Engagement Liaison Name | Role | Phone | + +------+ + PCP | Unavailable | + +------+ + Encounter Details +--------+ + + + + | Date | Type | Department | Care Team | Description | +--------+ + + + + | 08/07/ | [facility] | [facility] | Royal Randolph | | | 1999 | Encounter | MED CTR EMERGENCY | MD Louie [address] | | | | | [place] [address] | [address] | | | | | [place] | [place] [address] | | | | | [address] | [phone] | | | | | [phone] | | | +--------+ + + + [...]
--- OUTSIDE RECORDS SUMMARY | ~2019-06-13 | XMS | Encounter Summary ---
Demographics + + + | Address | [facility] [address] | | | [place] [address] | + + + | Home Phone | | + + + | Preferred Language | Unknown | + + + | Marital Status | | + + + | Anabaptist Affiliation | Unknown | + + + [...] Team Providers + +------+ + | Care Radiology Transporter Name | Role | Phone | + +------+ + PCP | Unavailable | + +------+ + Encounter Details +--------+ + + + + | Date | Type | Department | Care Team | Description | +--------+ + + + + | 07/05/ | Hospital | [facility] | Annette Roman | | | 2009 | Encounter | MED CTR LABORATORY | L, JACKHAMMER SPLITTER OPERATOR [address] | | | | | [address] | [place] | | | | | [place] | [address] | | | | | [address] | | | | | | [phone] | | | +--------+ + + + [...]
--- OUTSIDE RECORDS SUMMARY | ~2019-06-13 | XMS | Encounter Summary ---
Demographics + + + | Address | [facility] [address] | | | [place] [address] | + + + | Home Phone | | + + + | Preferred Language | Unknown | + + + | Marital Status | | + + + | Synagogue Affiliation | Unknown | + + + | Race | Unknown | + + + | Ethnic Group | Unknown | + + + Author + + + | Author | [facility] | | | and [place] | + + + | Organization | [facility] | | | [...] Team Providers + +------+ + | Care Painter Chassis Name | Role | Phone | + +------+ + | Annette Roman | PCP | | + +------+ + Encounter Details +--------+ + + + + | Date | Type | Department | Care Team | Description | +--------+ + + + + | 07/14/ | Hospital | [facility] | Annette Roman | | | 2011 | Encounter | MED CTR LABORATORY | L, CABLE TELEVISION INSTALLER [address] | | | | | [address] [place] | [address] [place] | | | | | [place] | [address] | | | | | [address] | | | | | | [phone] | | | +--------+ + + + [...]
--- OUTSIDE RECORDS SUMMARY | ~2019-06-13 | XMS | Encounter Summary ---
Demographics + + + | Address | [facility] [address] | | | [place] [address] | + + + | Home Phone | | + + + | Preferred Language | Unknown | + + + | Marital Status | | + + + | Mormon Affiliation | Unknown | + + + | Race | Unknown | + + + | Ethnic Group | Unknown | + + + Author + + + | Author | [facility] | | | and [place] | + + + | Organization | [facility] | | | [...] Team Providers + +------+ + | Care Child Life Specialist Name | Role | Phone | + +------+ + PCP | Unavailable | + +------+ + Encounter Details +--------+ + + + + | Date | Type | Department | Care Team | Description | +--------+ + + + + | 07/05/ | Hospital | [facility] | Annette Roman | | | 2009 | Encounter | MED CTR LABORATORY | L, FIRE POT OPERATOR [address] | | | | | [address] | [place] | | | | | [place] | [address] | | | | | [address] | | | | | | [phone] | | | +--------+ + + + [...]
--- OUTSIDE RECORDS SUMMARY | ~2019-06-13 | XMS | Encounter Summary ---
Demographics + + + | Address | [facility] [address] | | | [place] [address] | + + + | Home Phone | | + + + | Preferred Language | Unknown | + + + | Marital Status | | + + + | Moravian Affiliation | Unknown | + + + | Race | Unknown | + + + | Ethnic Group | Unknown | + + + Author + + + | Author | [facility] | | | and [place] | + + + | Organization | [facility] | | | and [...] Team Providers + +------+ + | Care Chief Enterprise Architect Name | Role | Phone | + +------+ + PCP | Unavailable | + +------+ + Encounter Details +--------+ + + + + | Date | Type | Department | Care Team | Description | +--------+ + + + + | 04/05/ | Hospital | [facility] | Annette Roman | | | 2009 | Encounter | MED CTR LABORATORY | L, DOCUMENTATION SPECIALIST [address] | | | | | [address] | [place] | | | | | [place] | [address] | | | | | [address] | | | | | | [phone] | | | +--------+ + + + [...]
--- OUTSIDE RECORDS SUMMARY | ~2019-06-13 | XMS | Encounter Summary ---
Demographics + + + | Address | [facility] [address] | | | [place] [address] | + + + | Home Phone | | + + + | Preferred Language | Unknown | + + + | Marital Status | | + + + | Adventist Affiliation | Unknown | + + + | Race | Unknown | + + + | Ethnic Group | Unknown | + + + Author + + + | Author | [facility] | | | and [place] | + + + | Organization | [facility] | | | [...] Team Providers + +------+ + | Care Recruiting And Selection Consultant Name | Role | Phone | + +------+ + PCP | Unavailable | + +------+ + Encounter Details +--------+ + + + + | Date | Type | Department | Care Team | Description | +--------+ + + + + | 02/02/ | Hospital | [facility] | Annette Roman | | | 2009 | Encounter | MED CTR LABORATORY | L, AUDIOVISUAL TECHNICIAN [address] | | | | | [address] | [place] | | | | | [place] | [address] | | | | | [address] | | | | | | [phone] | | | +--------+ + + + [...]
--- OUTSIDE RECORDS SUMMARY | ~2019-06-13 | XMS | Encounter Summary ---
Demographics + + + | Address | [facility] [address] | | | [place] [address] | + + + | Home Phone | | + + + | Preferred Language | Unknown | + + + | Marital Status | | + + + | Orthodoxy Affiliation | Unknown | + + + | Race | Unknown | + + + | Ethnic Group | Unknown | + + + Author + + + | Author | [facility] | | | and [place] | + + + | Organization | [facility] | | | [...] Team Providers + +------+ + | Care Supreme Court Judge Name | Role | Phone | + +------+ + | Annette Roman | PCP | | + +------+ + Encounter Details +--------+ + + + + | Date | Type | Department | Care Team | Description | +--------+ + + + + | 04/20/ | Hospital | [facility] | | | | 2009 | Encounter | MED CTR GENERIC OP | | | | | | CONV DEPT [address] | | | | | | [place], | | | | | | [place] [address] | | | | | | [phone] | | | +--------+ + + + [...]
--- OUTSIDE RECORDS SUMMARY | ~2019-06-13 | XMS | Encounter Summary ---
Demographics + + + | Address | [facility] [address] | | | [place] [address] | + + + | Home Phone [...] Team Providers + +------+ + | Care Sign Designer Name | Role | Phone | + +------+ + PCP | Unavailable | + +------+ + Encounter Details +--------+ + + + + | Date | Type | Department | Care Team | Description | +--------+ + + + + | 01/04/ | [facility] | [facility] | Annette Roman | | | 2009 | Encounter | MED CTR LABORATORY | L, SALES SUPPORT ASSISTANT [address] | | | | | [address] | [place] | | | | | [place] | [address] | | | | | [address] | | | | | | [phone] | | | +--------+ + + + [...]
--- OUTSIDE RECORDS SUMMARY | ~2019-06-13 | XMS | Encounter Summary ---
Demographics + + + | Address | [facility] [address] | | | [place] [address] | + + + | Home Phone | | + + + | Preferred Language | Unknown | + + + | Marital Status | | + + + | Muslim Affiliation | Unknown | + + + | Race | Unknown | + + + | Ethnic Group | Unknown | + + + Author + + + | Author | [facility] | | | and [place] | + + + | Organization | [facility] | | | [...] Team Providers + +------+ + | Care Senior Cobol Developer Name | Role | Phone | + +------+ + | Annette Roman | PCP | | + +------+ + Encounter Details +--------+ + + + + | Date | Type | Department | Care Team | Description | +--------+ + + + + | 06/14/ | Hospital | [facility] | Jimmie Kearns, | | | 2009 | Encounter | MED CTR LABORATORY | PA-C [address] | | | | | [address] [place] | [address] [place] | | | | | [place], [place] | [place] [address] | | | | | [address] | [phone] | | | | | [phone] | | | +--------+ + + + [...]
--- OUTSIDE RECORDS SUMMARY | ~2019-06-13 | XMS | Encounter Summary ---
Demographics + + + | Address | [facility] [address] | | | [place] [address] | + + + | Home Phone | | + + + | Preferred Language | Unknown | + + + | Marital Status | | + + + | Buddhist Affiliation | Unknown | + + + | Race | Unknown | + + + | Ethnic Group | Unknown | + + + Author + + + | Author | [facility] | | | and [place] | + + + | Organization | [facility] | | | and [...] Providers + +------+ + | Care Senior Attorney Name | Role | Phone | + +------+ + PCP | Unavailable | + +------+ + Encounter Details +--------+ + + + + | Date | Type | Department | Care Team | Description | +--------+ + + + + | 11/07/ | Hospital | [facility] | | | | 1996 | Encounter | MED CTR EMERGENCY | | | | | | CENTER [address] | | | | | | [place] | | | | | | [address] | | | | | | [phone] | | | +--------+ + + + [...]
--- OUTSIDE RECORDS SUMMARY | ~2019-06-13 | XMS | Encounter Summary ---
Demographics + + + | Address | [facility] [address] | | | [place] [address] | + + + | Home Phone | | + + + | Preferred Language | Unknown | + + + | Marital Status | | + + + | Moravian Affiliation | Unknown | + + + | Race | Unknown | + + + | Ethnic Group | Unknown | + + + Author + + + | Author | [facility] | | | and [place] | + + + | Organization | [facility] | | [...] Team Providers + +------+ + | Care Back End Developer Name | Role | Phone | + +------+ + PCP | Unavailable | + +------+ + Encounter Details +--------+ + + + + | Date | Type | Department | Care Team | Description | +--------+ + + + + | 11/07/ | Hospital | [facility] | | | | 1996 | Encounter | MED CTR EMERGENCY | | | | | | CENTER [address] | | | | | | [place] | | | | | | [address] | | | | | | [phone] | | | +--------+ + + + [...]
--- OUTSIDE RECORDS SUMMARY | ~2019-06-13 | XMS | Encounter Summary ---
Demographics + + + | Address | [facility] [address] | | | [place] [address] | + + + | Home Phone | | + + + | Preferred Language | Unknown | + + + | Marital Status | | + + + | Faith Affiliation | Unknown | + + + | Race | Unknown | + + + | Ethnic Group | Unknown | + + + Author + + + | Author | [facility] | | | and [place] | + + + | Organization | [facility] | | [...] Team Providers + +------+ + | Care Special Effects Artist Name | Role | Phone | + [...] | SR | | | | | [phone] | | | +--------+ + + + [...]
--- OUTSIDE RECORDS SUMMARY | ~2019-06-13 | XMS | Encounter Summary ---
Demographics + + + | Address | [facility] [address] | | | [place] [address] | + + + | Home Phone | | + + + | Preferred Language | Unknown | + + + | Marital Status | | + + + | Restorationism Affiliation | Unknown | + + + [...] Team Providers + +------+ + | Care Topper Press Operator Name | Role | Phone | + +------+ + PCP | Unavailable | + +------+ + Encounter Details +--------+ + + + + | Date | Type | Department | Care Team | Description | +--------+ + + + + | 04/05/ | Hospital | [facility] | Annette Roman | | | 2009 | Encounter | MED CTR LABORATORY | L, RN VASCULAR [address] | | | | | [address] | [place] | | | | | [place] | [address] | | | | | [address] | | | | | | [phone] | | | +--------+ + + + [...]
--- OUTSIDE RECORDS SUMMARY | ~2019-06-13 | XMS | Encounter Summary ---
Demographics + + + | Address | [facility] [address] | | | [place] [address] | + + + | Home Phone | | + + + | Preferred Language | Unknown | + + + | Marital Status | | + + + | Confucianism Affiliation | Unknown | + + + | Race | Unknown | + + + | Ethnic Group | Unknown | + + + Author + + + | Author | [facility] | | | and [place] | + + + | Organization | [facility] | | | and [...] Team Providers + +------+ + | Care Program Coordinator For Residence Life Name | Role | Phone | + +------+ + | Annette Roman | PCP | | + +------+ + Encounter Details +--------+ + + + + | Date | Type | Department | Care Team | Description | +--------+ + + + + | 06/06/ | Hospital | [facility] | Annette Roman | | | 2009 | Encounter | MED CTR LABORATORY | L, SURVEY RESEARCH CENTER DIRECTOR [address] | | | | | [address] [place] | [address] [place] | | | | | [place] | [address] | | | | | [address] | | | | | | [phone] | | | +--------+ + + + [...]
--- OUTSIDE RECORDS SUMMARY | ~2019-06-13 | XMS | Encounter Summary ---
Demographics + + + | Address | [facility] [address] | | | [place] [address] | + + + | Home Phone | | + + + | Preferred Language | Unknown | + + + | Marital Status | | + + + | Christian Affiliation | Unknown | + + + | Race | Unknown | + + + | Ethnic Group | Unknown | + + + Author + + + | Author | [facility] | | | and [place] | + + + | Organization | [facility] | | | and [...] Team Providers + +------+ + | Care Educational Institution President Name | Role | Phone | + +------+ + | Annette Roman | PCP | | + +------+ + Encounter Details +--------+ + + + + | Date | Type | Department | Care Team | Description | +--------+ + + + + | 04/07/ | Hospital | [facility] | Annette Roman | | | 2009 | Encounter | MED CTR LABORATORY | L, HEALTH AND SAFETY COORDINATOR [address] | | | | | [address] [place] | [address] [place] | | | | | [place] | [address] | | | | | [address] | | | | | | [phone] | | | +--------+ + + + [...]
--- OUTSIDE RECORDS SUMMARY | ~2019-06-13 | XMS | Encounter Summary ---
Demographics + + + | Address | [facility] [address] | | | [place] [address] | + + + | Home Phone | | + + + | Preferred Language | Unknown | + + + | Marital Status | | + + + | Restorationist Affiliation | Unknown | + + + | Race | Unknown | + + + | Ethnic Group | Unknown | + + + Author + + + | Author | [facility] | | | and [place] | + + + | Organization | [facility] [...] Team Providers + +------+ + | Care Agriscience Teacher Name | Role | Phone | + +------+ + PCP | Unavailable | + +------+ + Encounter Details +--------+ + + + + | Date | Type | Department | Care Team | Description | +--------+ + + + + | 03/06/ | [facility] | [facility] | | | | 1990 | Encounter | MED CTR EMERGENCY | | | | | | CENTER [address] | | | | | | [place] | | | | | | [address] | | | | | | [phone] | | | +--------+ + + + [...]
--- OUTSIDE RECORDS SUMMARY | ~2019-06-13 | XMS | Clinical Summary ---
Demographics + + + | Address | [address] | | | [place] [address] | + + + | Home Phone | | + + + | Preferred Language | Unknown | + + + | Marital Status | | + + + | Pentecostalism Affiliation | Unknown | + + + | Race | Unknown | + + + | Ethnic Group | Unknown | + + + Author + + + | Author | [facility] | | | and [place] | + + + | Organization | [facility] | | [...] Team Providers + +------+ + | Care Apricot Washer Name | Role | Phone | + [...] | 03/28 | | e | | [address] UNITS capsule | mouth once weekly | [...]
--- OUTSIDE RECORDS SUMMARY | ~2019-06-13 | XMS | Encounter Summary ---
Demographics + + + | Address | [facility] [address] | | | [place] [address] | + + + | Home Phone | | + + + | Preferred Language | Unknown | + + + | Marital Status | | + + + | Rastafari Affiliation | Unknown | + + + | Race | Unknown | + + + | Ethnic Group | Unknown | + + + Author + + + | Author | [facility] | | | and [place] | + + + | Organization | [facility] [...] Team Providers + +------+ + | Care Road Traffic Controller Name | Role | Phone | + +------+ + PCP | Unavailable | + +------+ + Encounter Details +--------+ + + + + | Date | Type | Department | Care Team | Description | +--------+ + + + + | 04/09/ | Hospital | [facility] | | | | 1992 | Encounter | MED CTR EMERGENCY | | | | | | CENTER [address] | | | | | | [place] | | | | | | [address] | | | | | | [phone] | | | +--------+ + + + [...]
--- OUTSIDE RECORDS SUMMARY | ~2019-06-13 | XMS | Clinical Summary ---
Demographics + + + | Address | [address] [facility] | | | [place] [address] | + + + | Home Phone | | + + + | Preferred Language | Unknown | + + + | Marital Status | | + + + | Christianity Affiliation | Unknown | + + + | Race | Unknown | + + + | Ethnic Group | Unknown | + + + Author + + + | Author | [facility] | | | 02-22-19) | + + + | Organization | [facility] ([facility]ical as of | | | 02-22-19) | + + + | Address | Unknown | + + + | Phone | Unavailable | + + + Support + + +---------+ + | Name | Relationship | Address | Phone | + + +---------+ + | Jovanna Irizarry | ECON | Unknown | | + + +---------+ + Care Team Providers + +------+ + | Care Applique Sewer Name | Role | Phone | + +------+ + | Otis Carbajal | PP | | + +------+ + [...] +------+-------+ + | MEDICARE | MEDICA | [id number] | | | [address] | | | RE | | | | [place] [address] | | | IP-OP | | | [...] Home: | [address] | | | al/Fam | | [phone] | [place] | | | [place] | | | [address] | [address] | + +--------+ +--------+ + +
--- OUTSIDE RECORDS SUMMARY | ~2019-06-13 | XMS | Encounter Summary ---
Demographics + + + | Address | [facility] [address] | | | [place] [address] | + + + | Home Phone | | + + + | Preferred Language | Unknown | + + + | Marital Status | | + + + | Moravian Affiliation | Unknown | + + + | Race | Unknown | + + + | Ethnic Group | Unknown | + + + Author + + + | Author | [facility] | | | and [place] | + + + | Organization | [facility] | | | [...] Team Providers + +------+ + | Care Cement Finisher Apprentice Name | Role | Phone | + +------+ + PCP | Unavailable | + +------+ + Encounter Details +--------+ + + + + | Date | Type | Department | Care Team | Description | +--------+ + + + + | 04/09/ | Hospital | [facility] | | | | 1992 | Encounter | MED CTR EMERGENCY | | | | | | CENTER [address] | | | | | | [place] | | | | | | [address] | | | | | | [phone] | | | +--------+ + + + [...]
--- OUTSIDE RECORDS SUMMARY | ~2019-06-13 | XMS | Encounter Summary ---
Demographics + + + | Address | [facility] [address] | | | [place] [address] | + + + | Home Phone | | + + + | Preferred Language | Unknown | + + + | Marital Status | | + + + | Church Affiliation | Unknown | + + + [...] Team Providers + +------+ + | Care Roping Machine Tender Name | Role | Phone | + +------+ + PCP | Unavailable | + +------+ + Encounter Details +--------+ + + + + | Date | Type | Department | Care Team | Description | +--------+ + + + + | 01/13/ | [facility] | [facility] | Annette Roman | | | 2008 | Encounter | MED CTR GENERIC OP | L, BAKERY AND DELI SALES MANAGER [address] | | | | | CONV DEPT [address] [place] [address] | | | | | [place], | [address] | | | | | [place] [address] | | | | | | [phone] | | | +--------+ + + + [...]
--- OUTSIDE RECORDS SUMMARY | ~2019-06-13 | XMS | Encounter Summary ---
Demographics + + + | Address | [facility] [address] | | | [place] [address] | + + + | Home Phone | | + + + | Preferred Language | Unknown | + + + | Marital Status | | + + + | Judaism Affiliation | Unknown | + + + | Race | Unknown | + + + | Ethnic Group | Unknown | + + + Author + + + | Author | [facility] | | | and [place] | + + + | Organization | [facility] | | | and [...] Providers + +------+ + | Care Special Services Director Name | Role | Phone | [...] | 12/25/ | Telephone | [facility] | Annette Roman | Other | | 2013 | | [facility] [place] | L, VETERINARY MANAGER [address] | | | | | [address] | [address] [place] | | | | | [place], [place] | [address] | | | | | [address] | | | | | | [phone] | | | +--------+ + + + [...]
--- OUTSIDE RECORDS SUMMARY | ~2019-06-13 | XMS | Encounter Summary ---
Demographics + + + | Address | [address] | | | [place] [address] | + + + | Home Phone [...] Team Providers + +------+ + | Care Stores Naval Name | Role | Phone | + +------+ + | Annette Roman | PCP | | + +------+ + Encounter Details +--------+ + + + + | Date | Type | Department | Care Team | Description | +--------+ + + + + | 07/14/ | Hospital | [facility] | Annette Roman | | | 2011 | Encounter | MED CTR LABORATORY | L, SCIENTIST ENGINEER [address] | | | | | [address] | [address] [place] | | | | | [place] | [address] | | | | | [address] | | | | | | [phone] | | | +--------+ + + + [...]
--- OUTSIDE RECORDS SUMMARY | ~2019-06-13 | XMS | Encounter Summary ---
Demographics + + + | Address | [facility] [address] | | | [place] [address] | + + + | Home Phone | | + + + | Preferred Language | Unknown | + + + | Marital Status | | + + + | Mu-Ism Affiliation | Unknown | + + + | Race | Unknown | + + + | Ethnic Group | Unknown | + + + Author + + + | Author | [facility] | | | and [place] | + + + | Organization | [facility] | | | [...] Team Providers + +------+ + | Care Nut Former Name | Role | Phone | + [...] | SR | | | | | [phone] | | | +--------+ + + + [...]
--- OUTSIDE RECORDS SUMMARY | ~2019-06-13 | XMS | Encounter Summary ---
Demographics + + + | Address | [facility] [address] | | | [place] [address] | + + + | Home Phone | | + + + | Preferred Language | Unknown | + + + | Marital Status | | + + + | Bahai Affiliation | Unknown | + + + | Race | Unknown | + + + | Ethnic Group | Unknown | + + + Author + + + | Author | [facility] | | | and [place] | + + + | Organization | [facility] | | | [...] Team Providers + +------+ + | Care Planisher Name | Role | Phone | + +------+ + PCP | Unavailable | + +------+ + Encounter Details +--------+ + + + + | Date | Type | Department | Care Team | Description | +--------+ + + + + | 10/05/ | Hospital | [facility] | Annette Roman | | | 2009 | Encounter | MED CTR LABORATORY | L, JEWELSMITH [address] | | | | | [address] | [place] | | | | | [place] | [address] | | | | | [address] | | | | | | [phone] | | | +--------+ + + + [...]
--- OUTSIDE RECORDS SUMMARY | ~2019-06-13 | XMS | Encounter Summary ---
Demographics + + + | Address | [facility] [address] | | | [place] [address] | + + + | Home Phone [...] Team Providers + +------+ + | Care Pre Wave Assembler Name | Role | Phone | + +------+ + PCP | Unavailable | + +------+ + Encounter Details +--------+ + + + + | Date | Type | Department | Care Team | Description | +--------+ + + + + | 08/07/ | [facility] | [facility] | Royal Randolph | | | 1999 | Encounter | MED CTR EMERGENCY | MD Louie [address] | | | | | [place] [place] [address] | [address] [place] | | | | | [place] | [place] [address] | | | | | [address] | [phone] | | | | | [phone] | | | +--------+ + + + [...]
--- OUTSIDE RECORDS SUMMARY | ~2019-06-13 | XMS | Encounter Summary ---
Demographics + + + | Address | [facility] [address] | | | [place] [address] | + + + | Home Phone | | + + + | Preferred Language | Unknown | + + + | Marital Status | | + + + | Evangelical Affiliation | Unknown | + + + | Race | Unknown | + + + | Ethnic Group | Unknown | + + + Author + + + | Author | [facility] | | | and [place] | + + + | Organization | [facility] | | | [...] Team Providers + +------+ + | Care Air Drier Machine Operator Name | Role | Phone | + +------+ + | Annette Roman | PCP | | + +------+ + Encounter Details +--------+ + + + + | Date | Type | Department | Care Team | Description | +--------+ + + + + | 06/06/ | Hospital | [facility] | Annette Roman | | | 2009 | Encounter | MED CTR LABORATORY | L, SECURITY COORDINATOR [address] | | | | | [address] | [address] [place] | | | | | [place] | [address] | | | | | [address] | | | | | | [phone] | | | +--------+ + + + [...]
--- OUTSIDE RECORDS SUMMARY | ~2019-06-13 | XMS | Encounter Summary ---
Demographics + + + | Address | [facility] [address] | | | [place] [address] | + + + | Home Phone | | + + + | Preferred Language | Unknown | + + + | Marital Status | | + + + | Yarsanism Affiliation | Unknown | + + + | Race | Unknown | + + + | Ethnic Group | Unknown | + + + Author + + + | Author | [facility] | | | and [place] | + + + | Organization | [facility] | | [...] Team Providers + +------+ + | Care Bindery Cutter Operator Name | Role | Phone | + +------+ + | Annette Roman | PCP | | + +------+ + Encounter Details +--------+ + + + + | Date | Type | Department | Care Team | Description | +--------+ + + + + | 05/04/ | Hospital | [facility] | Annette Roman | | | 2009 | Encounter | MED CTR LABORATORY | L, 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
--- OUTSIDE RECORDS SUMMARY | ~2019-06-13 | XMS | Encounter Summary ---
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
--- OUTSIDE RECORDS SUMMARY | ~2019-06-13 | XMS | Clinical Summary ---
Demographics + + + | Address | [address] [facility] | | | [place] [address] | + + + | Home Phone | | + + + | Preferred Language | Unknown | + + + | Marital Status | | + + + | Adventist Affiliation | Unknown | + + + | Race | Unknown | + + + | Ethnic Group | Unknown | + + + Author + + + | Author | [facility] (Historical as of | | | 02-22-19) | + + + | Organization | [facility] (Historical as of | | | 02-22-19) [...] Providers + +------+ + | Care Carton Maker Name | Role | Phone | + [...] +------+-------+ + | MEDICARE | MEDICA | [id number] | | | [address] | | | [place] | | | | [place] [id number] | | | IP-OP | | | [...] | [place] | | | [address] | [phone] | + +--------+ +--------+ + +
--- OUTSIDE RECORDS SUMMARY | ~2019-06-13 | XMS | Encounter Summary ---
Demographics + + + | Address | [facility] [address] | | | [place] [address] | + + + | Home Phone | | + + + | Preferred Language | Unknown | + + + | Marital Status | | + + + | Gnosticism Affiliation | Unknown | + + + | Race | Unknown | + + + | Ethnic Group | Unknown | + + + Author + + + | Author | [facility] | | | and [place] | + + + | Organization | [facility] | | [...] Team Providers + +------+ + | Care Blood Bank Laboratory Technician Name | Role | Phone | + +------+ + | Annette Roman | PCP | | + +------+ + Encounter Details +--------+ + + + + | Date | Type | Department | Care Team | Description | +--------+ + + + + | 04/21/ | Hospital | [facility] [facility] | Annette Roman | | | 2011 | Encounter | MED CTR LABORATORY | L, PENCILLER [address] | | | | | [address] | [address] [place] | | | | | [place] | [address] | | | | | [address] | | | | | | [phone] | | | +--------+ + + + [...] ST. | [address] | [place] | [phone] | | [facility] | | [address] | | | - LABORATORY | | | | + + + + + | [facility] | [address] | [place] | | | [facility] | | [address] | | | - LABORATORY | | [...] + | [facility] | [address] | [place], [place] | [phone] | | [facility] | | [address] | | | - LABORATORY | | | | + + + + + | [facility] | [address] | [place], [place] | | | [facility] | | [address] | | | - LABORATORY | | [...] + | [facility] | [address] | [place] | [phone] | | [facility] | | [address] | | | - LABORATORY | | | | + + + + + | [facility] | [address] | [place] | | | [facility] | | [address] | | | - LABORATORY | | [...] 9 | 7 - 18 mg/dL | [facility] | | | | [...] | | ine Ratio | | | [address] BLANK | | [...] + | [facility] | [address] | [place] | [phone] | | [facility] | | [address] | | | - LABORATORY | | | | + + + + + | [facility] | [address] | [place] | | | [facility] | | [address] | | | - LABORATORY | | | | + + + + + documented in this encounter Visit Diagnoses Not on filedocumented in this encounter"
[~2019-06-13 15:34] MED LIST changes: +BASAGLAR K100 UNIT/1 SUB-Q; +PROZAC10 MG PO
== END 2019-06-13 18:35 | disposition home or self-care (01) ==
LOC: ED 15:34
DX: K85.90 Acute pancreatitis without necrosis or infection, unspecified (principal); I10 Essential (primary) hypertension; E11.9 Type 2 diabetes mellitus without complications; F17.200 Nicotine dependence, unspecified, uncomplicated; Z88.6 Allergy status to analgesic agent; Z79.899 Other long term (current) drug therapy; Z79.4 Long term (current) use of insulin; Z79.82 Long term (current) use of aspirin
CPT/HCPCS: 80053; 83690; 85025; 99283; J7030

== ENCOUNTER 2019-07-31 07:28 | Day surgery (SDC) | payer BC, MEDICARE ==
[~2019-07-31] VITALS: Ht 175.3 cm; Wt 74.8 kg
--- NOTE | 2019-07-31 10:47 | NUR ---
07/31/19 1047 Sheets,Belle 1030 PT ARRIVED TO PACU ASLEEP. VSS. 1040 O2 REMOVED. PT ASLEEP OFF AND ON. 1045 PT SITTING IN HIGH FOLWERS AND SIPPING WATER. PT COUGING OFF AND ON. PT REPORTS COUGH FOR THE LAST TWO WEEKS. 1047 PT FALLS EASILY ASLEEP.
--- NOTE | 2019-08-01 17:17 | PATH ---
[facility] [address] [place], [place] [address] Signed SPECIMEN(S): A DUODENAL BIOPSY SPECIMEN(S): B ANTRUM BIOPSY SPECIMEN(S): C PROXIMAL STOMACH BIOPSY SPECIMEN(S): D LOWER ESOPHAGEAL BIOPSY SPECIMEN SOURCE: A. DUODENAL BIOPSY B. ANTRUM BIOPSY C. PROXIMAL STOMACH BIOPSY D. LOWER ESOPHAGEAL BIOPSY CLINICAL HISTORY: Epigastric pain. Post Op: Gastritis, duodenitis. MICROSCOPIC DESCRIPTION: Histologic sections of all submitted blocks are examined by light microscopy. These findings, together with the gross examination, support the pathologic diagnosis. FINAL PATHOLOGIC DIAGNOSIS: A. Duodenum, biopsy: - Duodenal mucosa with increased chronic inflammation, Latonya gland hyperplasia and focal activity and erosion. - Negative for Helicobacter organisms. - Negative for dysplasia or malignancy. - See Comment. B. Stomach, antrum/pylorus, biopsy: - Antral mucosa with mild mucosal capillary congestion. - Negative for Helicobacter organisms on HE stain. - Negative for dysplasia or malignancy. C. Stomach, proximal, biopsy: - Oxyntic mucosa with mild mucosal capillary congestion. - Negative for Helicobacter organisms on HE stain. - Negative for dysplasia or malignancy. D. Esophagus, lower, biopsy: - Squamous mucosa with focal changes suggestive of mild reflux esophagitis. - Negative for intestinal metaplasia, dysplasia, or malignancy. COMMENT: An immunohistochemical stain (with appropriately staining controls) for H. pylori is performed on the duodenal biopsy and is negative for Helicobacter organisms. The findings in the duodenal biopsy PATIENT NAME: GIN SCALES PATHOLOGY DATE OF : 59 REPORT #: [id number] PHYSICIAN: MARSHAL PATHOLOGY PCP: RENE ANDERSON REPORT IS CONFIDENTIAL AND NOT TO BE RELEASED WITHOUT AUTHORIZATION [facility] [address] [place], [place] [address] Signed could be secondary to NSAID-associated or peptic damage. NAL:emb:C2NR GROSS DESCRIPTION: Four specimens are received in four containers, labeled "HZ." A. The specimen, labeled "HZ, 1" and "duodenal biopsy" is received in formalin and consists of two soft pink tissue fragments that measure 0.3 cm each and are submitted in toto in cassette (A1). B. The specimen, labeled "HZ, 2" and "antrum biopsy" on the requisition is received in formalin and consists of a 0.3 cm soft morton tissue fragment that is submitted in toto in cassette (B1). C. The specimen, labeled "HZ, 3" and "proximal stomach biopsy" on the requisition is received in formalin and consists of three soft morton tissue fragments that vary from 0.1-0.2 cm and are submitted in toto in cassette (C1). D. The specimen, labeled "HZ, #4" and "lower esophageal biopsy" on the requisition," is received in formalin and consists of three soft jaimes flat tissue fragments that measure 0.2 cm each and are submitted in toto in cassette (D1). SS (under the direct supervision of a pathologist) The Gross Description was prepared using a voice recognition system. The report was reviewed for accuracy; however, sound-alike word errors, addition and/or deletions may occur. If there is any question about this report, please contact Client Services. ADDITIONAL NOTES: Immunohistochemical and/or in situ hybridization studies were performed on this case with the appropriate positive controls that react as expected. This test was developed and its performance characteristics determined by [facility]. It has not been cleared or approved by the U.S. Food and Drug Administration. The FDA has determined that such clearance or approval is not necessary. This test is used for clinical purposes. It should not be regarded as investigational or for research. [facility] is certified under the Clinical Laboratory Improvement Amendments of 1988 (CLIA) as qualified to perform high complexity clinical laboratory testing. PERFORMING LABORATORY: The technical component was performed by [facility], [address] [place] [id number] (Mortgage Loan Officer Originator: Iwona Ibarra MD; CLIA# [id number]). PATIENT NAME: GIN SCALES PATHOLOGY DATE OF : 59 REPORT #: [id number] PHYSICIAN: MARSHAL CRESPO PCP: RENE ANDERSON REPORT IS CONFIDENTIAL AND NOT TO BE RELEASED WITHOUT AUTHORIZATION [facility] [address] [place], [place] [address] Signed Professional interpretation [facility], [address] [address] (Mortgage Loan Officer Originator: Mingo Crabtree MD; CLIA# [id number]). Diagnostician: Danay Rivera MD Pathologist Electronically Signed 08/01/2019 Copies: ~ PATIENT NAME: GIN SCALES PATHOLOGY DATE OF : 59 REPORT #: [id number] PHYSICIAN: MARSHAL PATHOLOGY PCP: RENE ANDERSON REPORT IS CONFIDENTIAL AND NOT TO BE RELEASED WITHOUT AUTHORIZATION
--- NOTE | 2019-08-01 18:38 | OR ---
[facility] [address] [place], [place] [address] Signed DATE OF OPERATION: 07/31/2019 SURGEON: Marcellus Wilson MD PREOPERATIVE DIAGNOSIS: Epigastric pain worsened with food intake. POSTOPERATIVE DIAGNOSES: 1. Diffuse gastritis including pre-pyloric gastric erosions. 2. Excessive bile in stomach. PROCEDURE: Esophagogastroduodenoscopy with biopsy. ANESTHESIA: Intravenous sedation, fentanyl 100 mcg, Versed 5 mg. INDICATION: This 64-year-old white man is a patient of Otis Carbajal, who has had episodes in the past few weeks of rather severe and debilitating epigastric pain. He has been empirically treated with Pepto-Bismol and Mylanta, not initially following through with prescribed proton pump inhibitor medication as outlined. He has since begun those medicines, his symptoms are improved. He has had cholecystectomy in the past by Dr. Santo Villa. He has no associated dysphagia or hematemesis or blood per rectum. He is admitted at this time to undergo upper endoscopy to better characterize the problem. FINDINGS: There was a fair amount of bile in the stomach. He had diffuse gastritis and duodenitis. He had pre-pyloric gastric erosions as well. He had no specific ulcer. CLOtest was negative 30 minutes post-procedure. The flap valve was reasonably good. There was no esophagitis. DESCRIPTION OF PROCEDURE: The patient was brought to the surgical endoscopy room and placed in lateral decubitus position. He was given topical Hurricaine spray hypopharyngeal anesthesia. A bite block was placed. Intravenous sedation was induced with fentanyl and Versed with full cardiopulmonary monitoring. An Olympus video upper endoscope was passed in the hypopharynx. The vocal cords were visualized and found to be normal. Scope was advanced to the esophagus. Throughout its length, it was entirely normal. There was no evidence of Rendon's epithelium, esophagitis or stricture. The scope was passed to the Electronically Signed By: MARCELLUS WILSON MD 08/01/19 1838 PATIENT NAME: GIN SCALES OPERATIVE REPORT DATE OF : 59 REPORT #: [id number] PHYSICIAN: MARCELLUS WILSON MD PCP: OTIS CARBAJAL REPORT IS CONFIDENTIAL AND NOT TO BE RELEASED WITHOUT AUTHORIZATION [facility] [address] [place], [place] [address] Signed stomach, which revealed a fair amount of bilious fluid. This was suctioned free. There was diffuse gastritis and in the pre-pyloric antrum, erosive changes as well. Pylorus was normal and non-distorted. Scope was passed through into the duodenum, which showed considerable edema and inflammation as well. There was no ulcer there. Biopsies were taken of the duodenum. The scope was withdrawn and biopsies taken of the pre-pyloric antral stomach as well. Retroflexed view showed proximal gastritis in the flap valve, which was rather marginal, but no sign of large hiatal hernia proper. Proximal gastric biopsies were taken also. The scope was withdrawn to the distal esophagus, although the esophageal mucosa was normal. Biopsies were obtained. Further withdrawal of scope showed no other abnormalities. The patient was then taken to recovery room in good condition having suffered no complication. CONCLUDING DIAGNOSIS: Diffuse gastritis and pre-pyloric erosive changes as well as duodenitis. Relationship to bile reflux gastritis uncertain. PLAN: Recommend continued use of PPI medication as it has been effective for him and additionally add Carafate 1 g p.o. q.i.d. We will see him back in about six weeks in the office and assess his progress and review his pathology reports. MD HERNÁN Michelle/THOMASL /[id number] cc: HEATHER Mitchell Copies: OTIS CARBAJAL ~ Electronically Signed By: MARCELLSU WILSON MD 08/01/19 1838 PATIENT NAME: GIN SCALES OPERATIVE REPORT DATE OF : 59 REPORT #: [id number] PHYSICIAN: MARCELLUS WILSON MD PCP: OTIS CARBAJAL REPORT IS CONFIDENTIAL AND NOT TO BE RELEASED WITHOUT AUTHORIZATION
== END 2019-07-31 11:13 | disposition home or self-care (01) ==
LOC: OPS 07:28 → DS 07:28 → OPS 08:45 → DS 08:45 → OPS 09:10
PROVIDERS: Surgery
PROC: 0DB78ZX Excision of Stomach, Pylorus, Via Natural or Artificial Opening Endoscopic, Diagnostic (ICD-10-PCS; 2019-07-31)
PROC: 0DB38ZX Excision of Lower Esophagus, Via Natural or Artificial Opening Endoscopic, Diagnostic (ICD-10-PCS; 2019-07-31)
PROC: 0DB68ZX Excision of Stomach, Via Natural or Artificial Opening Endoscopic, Diagnostic (ICD-10-PCS; 2019-07-31)
PROC: 0DB98ZX Excision of Duodenum, Via Natural or Artificial Opening Endoscopic, Diagnostic (ICD-10-PCS; principal; 2019-07-31 09:45)
DX: K29.80 Duodenitis without bleeding (principal); K29.70 Gastritis, unspecified, without bleeding; K25.9 Gastric ulcer, unspecified as acute or chronic, without hemorrhage or perforation; E11.9 Type 2 diabetes mellitus without complications; F17.210 Nicotine dependence, cigarettes, uncomplicated; Z79.4 Long term (current) use of insulin; Z79.899 Other long term (current) drug therapy; Z98.890 Other specified postprocedural states
CPT/HCPCS: 99153; G0500; J2250; J3010; J7121

== ENCOUNTER 2020-04-16 22:00 | Emergency (ER) | payer BC, MEDICARE ==
[~2020-04-16] VITALS: Ht 175.3 cm; Wt 74.8 kg
--- OUTSIDE RECORDS SUMMARY | ~2020-04-16 | XMS | Encounter Summary ---
Demographics + + + | Address | [facility] [address] | | | [place] [address] | + + + | Home Phone | | + + + | Preferred Language | Unknown | + + + | Marital Status | | + + + | Yazidi Affiliation | Unknown | + + + | Race | Unknown | + + + | Ethnic Group | or | + + + Author + + + | Author | [facility] | | | and [place] | + + + | Organization | [facility] | | | and [place] | [...] Team Providers + +------+ + | Care Virtualization Engineer Name | Role | Phone | + +------+ + | Annette Roman | PCP | | + +------+ + Encounter Details +--------+ + + + + | Date | Type | Department | Care Team | Description | +--------+ + + + + | 04/07/ | Hospital | [facility] | Annette Roman | | | 2009 | Encounter | MED CTR LABORATORY | Petros, SIGNALER [address] | | | | | [address] | [place] | | | | | [place] | [address] | | | | | [address] | | | | | | [phone] | | | +--------+ + + + [...] on file | | + + + documented as of this encounter Plan of Treatment Not on filedocumented as of this encounter Visit Diagnoses Not on filedocumented in this encounter"
--- OUTSIDE RECORDS SUMMARY | ~2020-04-16 | XMS | Encounter Summary ---
Demographics + + + | Address | [facility] [address] | | | [place] [address] | + + + | Home Phone | | + + + | Preferred Language | Unknown | + + + | Marital Status | | + + + | Hinduism Affiliation | Unknown | + + + | Race | Unknown | + + + | Ethnic Group | or | + + + Author + + + | Author | [facility] | | | and [place] | + + + | Organization | [facility] | | | and [...] Team Providers + +------+ + | Care Crabbing Machine Operator Name | Role | Phone | + +------+ + | Annette Roman | PCP | | + +------+ + Encounter Details +--------+ + + + + | Date | Type | Department | Care Team | Description | +--------+ + + + + | 04/20/ | Hospital | [facility] | | | | 2009 | Encounter | MED CTR GENERIC OP | | | | | | CONV DEPT [address] | | | | | | [place] | | | | | | [place] [address] | | | | | | [phone] | | | +--------+ + + + [...]
--- OUTSIDE RECORDS SUMMARY | ~2020-04-16 | XMS | Encounter Summary ---
Demographics + + + | Address | [facility] [address] | | | [place] [address] | + + + | Home Phone | | + + + | Preferred Language | Unknown | + + + | Marital Status | | + + + | Scientologist Affiliation | Unknown | + + + | Race | Unknown | + + + | Ethnic Group | or | + + + Author + + + | Author | [facility] | | | and [place] | + + + | Organization | [facility] | | | and [place] [...] Team Providers + +------+ + | Care Industry Operations Investigator Name | Role | Phone | + +------+ + | Annette Roman | PCP | | + +------+ + Reason for Visit +--------+--------+ + | Reason | Onset | Comments | | | Date | | +--------+--------+ + | Other | 12/25/ | | | | 2014 | | +--------+--------+ + Encounter Details +--------+ + + + + | Date | Type | Department | Care Team | Description | +--------+ + + + + | 12/25/ | Telephone | [facility] | Annette Roman | Other | | 2013 | | [facility] | Petros, [place] [address] | | | | | [address] | [address] [place], [place] | | | | | [place], [place] | [address] | | | | | [address] | | | | | | [phone] | | | +--------+ + + + [...] + + documented as of this encounter Miscellaneous Notes Telephone Encounter - Jonas Richardson RN - 12/25/2013 5:31 PM PDTNotified Law office of [facility] that this patient has not seen Annette in 3 years, unable to provid e a letter. Patient may request his medical records if he wishes, but we are not able to pr ovide a letter stating how something may impact his current state of mind as we have not exa mined him in 3 years. They state they will let patient know and if he has any questions they will have him contac t us. elephone Encounter - Sarah Espinosa - 12/25/2013 12:22 PM PDTPatient dropped off paperwork from immigration law for Annette Roman. Patient says to fax it to the number at the bottom of the letter. R outed to provider. Sarah Espinosa documented in this encou nter Plan of Treatment Not on filedocumented as of this encounter Visit Diagnoses Not on filedocumented in this encounter"
--- OUTSIDE RECORDS SUMMARY | ~2020-04-16 | XMS | Encounter Summary ---
Demographics + + + | Address | [facility] [address] | | | [place] [address] | + + + | Home Phone | | + + + | Preferred Language | Unknown | + + + | Marital Status | | + + + | Evangelical Affiliation | Unknown | + + + | Race | Unknown | + + + | Ethnic Group | or | + + + Author + + + | Author | [facility] | | | and [place] | + + + | Organization | [facility] | | | and [place] | [...] Team Providers + +------+ + | Care Stabilizing Machine Operator Name | Role | Phone | + +------+ + PCP | Unavailable | + +------+ + Encounter Details +--------+ + + + + | Date | Type | Department | Care Team | Description | +--------+ + + + + | 01/04/ | [facility] | [facility] | Annette Roman | | | 2009 | Encounter | MED CTR LABORATORY | L, 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
--- OUTSIDE RECORDS SUMMARY | ~2020-04-16 | XMS | Encounter Summary ---
Demographics + + + | Address | [facility] [address] | | | [place] [address] | + + + | Home Phone | | + + + | Preferred Language | Unknown | + + + | Marital Status | | + + + | Sabianism Affiliation | Unknown | + + + | Race | Unknown | + + + | Ethnic Group | or | + + + Author + + + | Author | [facility] | | | and [place] | + + + | Organization | [facility] | | | and [place] [...] Team Providers + +------+ + | Care Communications Instructor Name | Role | Phone | + +------+ + PCP | Unavailable | + +------+ + Encounter Details +--------+ + + + + | Date | Type | Department | Care Team | Description | +--------+ + + + + | 11/07/ | [facility] | [facility] | | | | 1996 | Encounter | MED CTR EMERGENCY | | | | | | CENTER [address] | | | | | | [place] | | | | | | [address] | | | | | | [phone] | | | +--------+ + + + [...]
--- OUTSIDE RECORDS SUMMARY | ~2020-04-16 | XMS | Encounter Summary ---
Demographics + + + | Address | [facility] [address] | | | [place] [address] | + + + | Home Phone | | + + + | Preferred Language | Unknown | + + + | Marital Status | | + + + | Buddhism Affiliation | Unknown | + + + | Race | Unknown | + + + | Ethnic Group | or | + + + Author + + + | Author | [facility] | | | and [place] | + + + | Organization | [facility] | | | and [place] [...] Team Providers + +------+ + | Care Otr Company Driver Name | Role | Phone | + +------+ + | Annette Roman | PCP | | + +------+ + Encounter Details +--------+ + + + + | Date | Type | Department | Care Team | Description | +--------+ + + + + | 06/14/ | Hospital | [facility] | Jimmie Kearns, | | | 2009 | Encounter | MED CTR LABORATORY | PA-C [address] | | | | | [address] [place] | [address] [place] | | | | | [place], [place] | [place] [address] | | | | | [address] | [phone] | | | | | [phone] | | | +--------+ + + + [...]
--- OUTSIDE RECORDS SUMMARY | ~2020-04-16 | XMS | Encounter Summary ---
Demographics + + + | Address | [facility] [address] | | | [place] [address] | + + + | Home Phone | | + + + | Preferred Language | Unknown | + + + | Marital Status | | + + + | Latter-Day Affiliation | Unknown | + + + | Race | Unknown | + + + | Ethnic Group | or | + + + Author + + + | Author | [facility] | | | and [place] | + + + | Organization | [facility] | | | and [place] [...] Team Providers + +------+ + | Care Cutting Table Operator Name | Role | Phone | + +------+ + | Annette Roman | PCP | | + +------+ + Encounter Details +--------+ + + + + | Date | Type | Department | Care Team | Description | +--------+ + + + + | 10/25/ | Hospital | [facility] | Annette Roman | | | 2010 | Encounter | MED CTR LABORATORY | Petros, LENDING CONSULTANT [address] | | | | | [address] | [place] | | | | | [place] | [address] | | | | | [address] | | | | | | [phone] | | | +--------+ + + + [...] | | A1c | | | [facility] | | [...] + | [facility] | [address] | [place] | [phone] | | [facility] | | [address] | | | - LABORATORY | | | | + + + + + | [facility] | [address] | [place], [place] | | | [facility] | | [address], [facility] [[email or web address]] | | | - LABORATORY | | | | + + + + + Lipid Profile (10/25/2010 8:52 AM PDT) + + + + + + | Component | Value | Ref Range | Performed | Pathologist | | | | | At | Signature | + + + + + + | Triglycerid | 340 (H) | 35 - 160 mg/dL | [facility] | | | es | | | [facility] | | [...] (L) | 27 - 67 mg/dL | [facility] | | | | | | [facility] | | | | | | MEDICAL | | | | | | CENTER - | | | | | | LABORATORY | | + + + + + + | LDL, | 109 | <130 mg/dL | [facility] | | | Calculated | | | [facility] | | | | | | MEDICAL | | | | | | CENTER - | | | | | | LABORATORY | | + + + + + + | Chol/HDL | 8.1Comment: | | [facility] | | | Ratio | | | [...] + | [facility] | [address] | [place], [place] | [phone] | | [facility] | | [address] | | | - LABORATORY | | | | + + + + + | [facility] | [address] | [place] | | | [facility] | | [id number] [place] [address] | | | - LABORATORY | | [...] | | Phosphatase | | | [facility] | | [...] 4.1 | 3.2 - 5.0 gm/dL | [facility] | | | | | | [facility] | | | | | | MEDICAL | | | | | | CENTER - | | | | | | LABORATORY | | + + + + + + | BUN | 8 | 7 - 18 mg/dL | [facility] | | | | | | [facility] | | | | | | MEDICAL | | | | | | CENTER - | | | | | | LABORATORY | | + + + + + + | Creatinine | 0.70 | 0.60 - 1.30 | [facility] | | | | | mg/dL | [facility] | | | | | | MEDICAL | | | | | | CENTER - | | | | | | LABORATORY | | + + + + + + | Estimated | >60Comment: For | >60 mL/min/A | [facility] | | | GFR | -Americans, | | [facility] | | | | please multiply the [...] | ine Ratio | | | [facility] | | [...] + + | Performing | Address | City/[facility] | Phone Number | | Organization | | | | + + + + + | [facility] | [address] | [place] | [phone] | | [facility] | | [address] | | | - LABORATORY | | | | + + + + + | [facility] | [address] | [place], [place] | | | [facility] | | [address], [facility] [[email or web address]] | | | - LABORATORY | | | | + + + + + documented in this encounter Visit Diagnoses Not on filedocumented in this encounter"
--- OUTSIDE RECORDS SUMMARY | ~2020-04-16 | XMS | Encounter Summary ---
Demographics + + + | Address | [facility] [address] | | | [place] [address] | + + + | Home Phone | | + + + | Preferred Language | Unknown | + + + | Marital Status | | + + + | Hinduism Affiliation | Unknown | + + + | Race | Unknown | + + + | Ethnic Group | or | + + + Author + + + | Author | [facility] | | | and [place] | + + + | Organization | [facility] | | | and [place] [...] Team Providers + +------+ + | Care Standards Analyst Name | Role | Phone | + +------+ + | Annette Roman | PCP | | + +------+ + Encounter Details +--------+ + + + + | Date | Type | Department | Care Team | Description | +--------+ + + + + | 06/06/ | [facility] | [facility] | Annette Roman | | | 2009 | Encounter | MED CTR LABORATORY | Petros, LINE O SCRIBE OPERATOR [address] | | | | | [address] | [place] | | | | | [place] | [address] | | | | | [address] | | | | | | [phone] | | | +--------+ + + + [...]
--- OUTSIDE RECORDS SUMMARY | ~2020-04-16 | XMS | Encounter Summary ---
Demographics + + + | Address | [facility] [address] | | | [place] [address] | + + + | Home Phone | | + + + | Preferred Language | Unknown | + + + | Marital Status | | + + + | Anglican Affiliation | Unknown | + + + | Race | Unknown | + + + | Ethnic Group | or | + + + Author + + + | Author | [facility] | | | and [place] | + + + | Organization | [facility] | | | and [place] | [...] Team Providers + +------+ + | Care Carton Folder Name | Role | Phone | + +------+ + | Annette Roman | PCP | | + +------+ + Encounter Details +--------+ + + + + | Date | Type | Department | Care Team | Description | +--------+ + + + + | 04/21/ | [facility] | [facility] | Annette Roman | | | 2010 | Encounter | MED CTR LABORATORY | Petros, HUMAN ANATOMY TEACHER [address] | | | | | [address] | [place] | | | | | [place] | [address] | | | | | [address] | | | | | | [phone] | | | +--------+ + + + [...] mouth in am | | 0 | /01/25 | | | (PRINIVIL, ZESTRIL) | and [...] | | n, Urine, | | | [facility] | | | Random | | [...] <30 MG/G - NORMAL, | | [facility] | | | | REPEAT YEARLY | [...] + | [facility] | [address] | [place], [place] | [phone] | | [facility] | | [address] | | | - LABORATORY | | | | + + + + + | [facility] | [address] | [place] | | | [facility] | | [id number] | | | - LABORATORY | | | | + + + + + Hemoglobin A1C (04/21/2011 10:01 AM PDT) + + + + + + | Component | Value | Ref Range | Performed | Pathologist | | | | | At | Signature | + + + + + + | Hemoglobin | 11.0 (H)Comment: | 4.3 - 5.8 % | [facility] | | | A1c | DIABETIC PATIENT [...] + + | [facility] | [address] | [place] | [phone] | | [facility] | | [address] | | | - LABORATORY | | | | + + + + + | [facility] | [address] | [place] | | | [facility] | | [address], [facility] | | | - LABORATORY | | [...] | 136 (H) | <130 mg/dL | [facility] | | | Calculated | | | [facility] | | [...] + | [facility] | [address] | [place] | [phone] | | [facility] | | [address] | | | - LABORATORY | | | | + + + + + | [facility] | [address] | [place] | | | [facility] | | [id number] [place] [address] | | | - LABORATORY | | [...] 9 | 7 - 18 mg/dL | [facility] | | | | | | [facility] | | | | | | MEDICAL | | | | | | CENTER - | | | | | | LABORATORY | | + + + + + + | Creatinine | 0.69 | 0.60 - 1.30 | [facility] | | | | | mg/dL | [facility] | | | | | | MEDICAL | | | | | | CENTER - | | | | | | LABORATORY | | + + + + + + | Estimated | >60Comment: For | >60 mL/min/A | [facility] | | | GFR | -Americans, | [...] + | [facility] | [address] | [place] | [phone] | | [facility] | | [address] | | | - LABORATORY | | | | + + + + + | [facility] | [address] | [place] | | | [facility] | | [id number] | | | - LABORATORY | | | | + + + + + documented in this encounter Visit Diagnoses Not on filedocumented in this encounter"
--- OUTSIDE RECORDS SUMMARY | ~2020-04-16 | XMS | Encounter Summary ---
Demographics + + + | Address | [facility] [address] | | | [place] [address] | + + + | Home Phone | | + + + | Preferred Language | Unknown | + + + | Marital Status | | + + + | Mosque Affiliation | Unknown | + + + | Race | Unknown | + + + | Ethnic Group | or | + + + Author + + + | Author | [facility] | | | and [place] | + + + | Organization | [facility] | | | and [place] [...] Team Providers + +------+ + | Care Victorian Literature Professor Name | Role | Phone | + +------+ + PCP | Unavailable | + +------+ + Encounter Details +--------+ + + + + | Date | Type | Department | Care Team | Description | +--------+ + + + + | 07/05/ | Hospital | [facility] | Annette Roman | | | 2009 | Encounter | MED CTR LABORATORY | L, CIRCUS SUPERVISOR [address] | | | | | [address] | [place] | | | | | [place] | [address] | | | | | [address] | | | | | | [phone] | | | +--------+ + + + [...]
--- OUTSIDE RECORDS SUMMARY | ~2020-04-16 | XMS | Encounter Summary ---
Demographics + + + | Address | [facility] [address] | | | [place] [address] | + + + | Home Phone | | + + + | Preferred Language | Unknown | + + + | Marital Status | | + + + | Jew Affiliation | Unknown | + + + | Race | Unknown | + + + | Ethnic Group | or | + + + Author + + + | Author | [facility] | | | and [place] | + + + | Organization | [facility] | | | and [...] Team Providers + +------+ + | Care Squaring Shear Operator Name | Role | Phone | + +------+ + | Annette Roman | PCP | | + +------+ + Encounter Details +--------+ + + + + | Date | Type | Department | Care Team | Description | +--------+ + + + + | 03/21/ | Abstract | [facility] | [facility] | | | 2011 | | Conversion Location | SR | | | | | [address] | | | | | | [place], [place] | | | | | | [address] | | | | | | [phone] | | | +--------+ + + + [...] + + documented as of this encounter Last Filed Vital Signs + + + + + | Vital Sign | Reading | Time Taken | Comments | + + + + + | Blood Pressure | 122/74 | 06/06/2011 12:00 AM | | | | | PST | | + + + + + | Pulse | - | - | | + [...] + + + + | Weight | 76.2 kg (168 lb) | 06/06/2011 12:00 AM | | | | | PST | | + + + + + | Height | 175.3 cm (5' 9") | 04/14/2010 12:00 AM | | | | | PDT | | + + + + + | Body Mass Index | 24.81 | 04/14/2010 12:00 AM | | | | | PDT | | + + + + + documented in this encounter Plan of Treatment Not on filedocumented as of this encounter Visit Diagnoses Not on filedocumented in this encounter
--- OUTSIDE RECORDS SUMMARY | ~2020-04-16 | XMS | Clinical Summary ---
Demographics + + + | Address | [address] | | | [place] [address] | + + + | Home Phone | | + + + | Preferred Language | Unknown | + + + | Marital Status | | + + + | Mandaeism Affiliation | Unknown | + + + | Race | Unknown | + + + | Ethnic Group | or | + + + Author + + + | Author | [facility] | | | and [place] | + + + | Organization | [facility] | | | and [place] [...] Team Providers + +------+ + | Care Coding Technician Name | Role | Phone | + [...] | 03/28 | | e | | [address] UNITS capsule | mouth once weekly | | | 11 | | | | | for 12 weeks | | | | | | + + + +---------+------+------+-------+ | lisinopril | 40 mg by mouth in am | | 0 | 07/0 | | Activ | | (PRINIVIL, ZESTRIL) | and 20 mg in | | | /20 | | e | | 20 mg tablet | evening | | | 11 | | | + + + +---------+------+------+-------+ | lamoTRIgine | Take 100 mg by mouth | | 0 | 10/1 | | Activ | | (LAMICTAL) 100 mg | 2 times daily. | | | 20 | | e | | tablet | | | | 11 | | | + + + +---------+------+------+-------+ | glucose blood | use as directed | | 0 | 10/ | | Activ | | test strips | daily 250.00 | | | 20 | | e | | (FREESTYLE TEST [...] MG | at bedtime | | | 20 | | e | | tablet | [...] + + Plan of Treatment + + +-------+ + | Health Maintenance | Due Date | Last | Comments | | | | Done | | + + +-------+ + | Vaccine: | | | | | Dtap/Tdap/Td (1 - | 6 | | | | Tdap) | | | | + + +-------+ + | Vaccine: Zoster (1 | | | | | of 2) | 7 | | | + + +-------+ + | Vaccine: Influenza | | | | | (#1) | 0 | | | + + +-------+ + Results Not on filefrom Last 3 Months
--- OUTSIDE RECORDS SUMMARY | ~2020-04-16 | XMS | Encounter Summary ---
Demographics + + + | Address | [facility] [address] | | | [place] [address] | + + + | Home Phone | | + + + | Preferred Language | Unknown | + + + | Marital Status | | + + + | Baptist Affiliation | Unknown | + + + | Race | Unknown | + + + | Ethnic Group | or | + + + Author + + + | Author | [facility] | | | and [place] | + + + | Organization | [facility] | | | and [place] [...] Team Providers + +------+ + | Care Cleaning Handyman Name | Role | Phone | + +------+ + | Annette Roman | PCP | | + +------+ + Encounter Details +--------+ + + + + | Date | Type | Department | Care Team | Description | +--------+ + + + + | 05/04/ | [facility] | [facility] | Annette Roman | | | 2009 | Encounter | MED CTR LABORATORY | Petros, SLUBBER HAND [address] | | | | | [address] | [place] | | | | | [place] | [address] | | | | | [address] | | | | | | [phone] | | | +--------+ + + + [...]
--- OUTSIDE RECORDS SUMMARY | ~2020-04-16 | XMS | Encounter Summary ---
Demographics + + + | Address | [facility] [address] | | | [place] [address] | + + + | Home Phone | | + + + | Preferred Language | Unknown | + + + | Marital Status | | + + + | Mosque Affiliation | Unknown | + + + | Race | Unknown | + + + | Ethnic Group | or | + + + Author + + + | Author | [facility] | | | and [place] | + + + | Organization | [facility] | | | and [...] Team Providers + +------+ + | Care Guest Relations Manager Name | Role | Phone | + +------+ + PCP | Unavailable | + +------+ + Encounter Details +--------+ + + + + | Date | Type | Department | Care Team | Description | +--------+ + + + + | 01/13/ | [facility] | [facility] | Annette Roman | | | 2008 | Encounter | MED CTR GENERIC OP | L, HOMEMAKING REHABILITATION CONSULTANT [address] | | | | | CONV DEPT [address] | [place] | | | | | [place], | [address] | | | | | [place] [address] | | | | | | [phone] | | | +--------+ + + + [...]
--- OUTSIDE RECORDS SUMMARY | ~2020-04-16 | XMS | Encounter Summary ---
Demographics + + + | Address | [facility] [address] | | | [place] [address] | + + + | Home Phone | | + + + | Preferred Language | Unknown | + + + | Marital Status | | + + + | Rastafarian Affiliation | Unknown | + + + | Race | Unknown | + + + | Ethnic Group | or | + + + Author + + + | Author | [facility] | | | and [place] | + + + | Organization | [facility] | | | and [place] [...] Team Providers + +------+ + | Care Advisory Internship Name | Role | Phone | + +------+ + PCP | Unavailable | + +------+ + Encounter Details +--------+ + + + + | Date | Type | Department | Care Team | Description | +--------+ + + + + | 03/06/ | [facility] | [facility] | | | | 1990 | Encounter | MED CTR EMERGENCY | | | | | | CENTER [address] | | | | | | [place] | | | | | | [address] | | | | | | [phone] | | | +--------+ + + + [...]
--- OUTSIDE RECORDS SUMMARY | ~2020-04-16 | XMS | Encounter Summary ---
Demographics + + + | Address | [facility] [address] | | | [place] [address] | + + + | Home Phone | | + + + | Preferred Language | Unknown | + + + | Marital Status | | + + + | Rastafari Affiliation | Unknown | + + + | Race | Unknown | + + + | Ethnic Group | or | + + + Author + + + | Author | [facility] | | | and [place] | + + + | Organization | [facility] | | | and [...] Team Providers + +------+ + | Care Potato Chip Fryer Name | Role | Phone | + +------+ + PCP | Unavailable | + +------+ + Encounter Details +--------+ + + + + | Date | Type | Department | Care Team | Description | +--------+ + + + + | 04/09/ | [facility] | [facility] | | | | 1992 | Encounter | MED CTR EMERGENCY | | | | | | CENTER [address] | | | | | | [place] | | | | | | [address] | | | | | | [phone] | | | +--------+ + + + [...]
--- OUTSIDE RECORDS SUMMARY | ~2020-04-16 | XMS | Encounter Summary ---
Demographics + + + | Address | [facility] [address] | | | [place] [address] | + + + | Home Phone | | + + + | Preferred Language | Unknown | + + + | Marital Status | | + + + | Presybeterian Affiliation | Unknown | + + + | Race | Unknown | + + + | Ethnic Group | or | + + + Author + + + | Author | [facility] | | | and [place] | + + + | Organization | [facility] | | | and [...] Team Providers + +------+ + | Care Jig Box Operator Name | Role | Phone | + +------+ + PCP | Unavailable | + +------+ + Encounter Details +--------+ + + + + | Date | Type | Department | Care Team | Description | +--------+ + + + + | 10/05/ | Hospital | [facility] | Annette Roman | | | 2009 | Encounter | MED CTR LABORATORY | L, PUFF IRONER [address] | | | | | [address] | [place] | | | | | [place] | [address] | | | | | [address] | | | | | | [phone] | | | +--------+ + + + [...]
--- OUTSIDE RECORDS SUMMARY | ~2020-04-16 | XMS | Encounter Summary ---
Demographics + + + | Address | [facility] [address] | | | [place] [address] | + + + | Home Phone | | + + + | Preferred Language | Unknown | + + + | Marital Status | | + + + | Oriental Orthodox Affiliation | Unknown | + + + | Race | Unknown | + + + | Ethnic Group | or | + + + Author + + + | Author | [facility] | | | and [place] | + + + | Organization | [facility] | | | and [...] Team Providers + +------+ + | Care Bin Packer Name | Role | Phone | + +------+ + PCP | Unavailable | + +------+ + Encounter Details +--------+ + + + + | Date | Type | Department | Care Team | Description | +--------+ + + + + | 04/05/ | [facility] | [facility] | Annette Roman | | | 2009 | Encounter | MED CTR LABORATORY | L, DEFLASH AND WASH OPERATOR [address] | | | | | [address] | [place] | | | | | [place] | [address] | | | | | [address] | | | | | | [phone] | | | +--------+ + + + [...]
--- OUTSIDE RECORDS SUMMARY | ~2020-04-16 | XMS | Encounter Summary ---
Demographics + + + | Address | [facility] [address] | | | [place] [address] | + + + | Home Phone | | + + + | Preferred Language | Unknown | + + + | Marital Status | | + + + | Judaism Affiliation | Unknown | + + + | Race | Unknown | + + + | Ethnic Group | or | + + + Author + + + | Author | [facility] | | | and [place] | + + + | Organization | [facility] | | | and [...] Team Providers + +------+ + | Care Electrostatic Painter Name | Role | Phone | + +------+ + PCP | Unavailable | + +------+ + Encounter Details +--------+ + + + + | Date | Type | Department | Care Team | Description | +--------+ + + + + | 02/02/ | Hospital | [facility] | Annette Roman | | | 2009 | Encounter | MED CTR LABORATORY | L, INSTRUCTOR BUS TROLLEY AND TAXI [address] | | | | | [address] | [place] | | | | | [place] | [address] | | | | | [address] | | | | | | [phone] | | | +--------+ + + + [...]
--- OUTSIDE RECORDS SUMMARY | ~2020-04-16 | XMS | Encounter Summary ---
Demographics + + + | Address | [facility] [address] | | | [place] [address] | + + + | Home Phone [...] + | Author | [facility] | | | and [place] | + + + | Organization | [facility] | | | and [...] Team Providers + +------+ + | Care Brassiere Cup Mold Cutter Name | Role | Phone | + +------+ + PCP | Unavailable | + +------+ + Encounter Details +--------+ + + + + | Date | Type | Department | Care Team | Description | +--------+ + + + + | 08/07/ | [facility] | [facility] | [place] | | | 1999 | Encounter | [facility] | MD Louie [address] | | | | | [facility] [address] | [address] | | | | | [place] | [place] [id number] | | | | | [address] | [phone] | | | | | [phone] | | | +--------+ + + + [...]
--- OUTSIDE RECORDS SUMMARY | ~2020-04-16 | XMS | Encounter Summary ---
Demographics + + + | Address | [facility] [address] | | | [place] [address] | + + + | Home Phone [...] + | Author | [facility] | | | and [place] | + + + | Organization | [facility] | | | and [place] [...] Team Providers + +------+ + | Care Gear And Spline Grinder Name | Role | Phone | + +------+ + | Annette Roman | PCP | | + +------+ + Encounter Details +--------+ + + + + | Date | Type | Department | Care Team | Description | +--------+ + + + + | 07/14/ | Hospital | [facility] | Annette Roman | | | 2010 | Encounter | [facility] LABORATORY | Petros, CATTLE TRADER [address] | | | | | [address] | [place] | | | | | [place] | [id number] | | | | | [address] | | | | | | [phone] | | | +--------+ + + + [...]
--- NOTE | 2020-04-18 11:27 | EKG ---
[facility] [address] [facility] [place], [place] [address] Signed Normal sinus rhythm Normal ECG When compared with ECG of 07-JAN-2018 12:32, No significant change was found Confirmed by TRA NÚÑEZ MD ([id number]) on 04/18/2020 11:27:01 AM Electronically Signed By: TRA NÚÑEZ MD 04/18/20 1127 PATIENT NAME: GIN SCALES Electrocardiogram DATE OF : 59 PHYSICIAN: TRA NÚÑEZ MD REPORT #: [id number] REPORT IS CONFIDENTIAL AND NOT TO BE RELEASED WITHOUT AUTHORIZATION
== END 2020-04-17 00:13 | disposition home or self-care (01) ==
LOC: ED 22:00
DX: R11.0 Nausea (principal); E11.9 Type 2 diabetes mellitus without complications; I10 Essential (primary) hypertension; F17.200 Nicotine dependence, unspecified, uncomplicated; Z88.8 Allergy status to other drugs, medicaments and biological substances; Z79.899 Other long term (current) drug therapy; Z79.4 Long term (current) use of insulin; Z79.82 Long term (current) use of aspirin
CPT/HCPCS: 80053; 81001; 83735; 84484; 85025; 93005; 93010; 99283-25

== ENCOUNTER 2020-05-21 18:25 | Emergency (ER) | payer BC, MEDICARE ==
[~2020-05-21] VITALS: Ht 175.3 cm; Wt 74.8 kg
[2020-05-21] MEDS ORDERED: JANUMET 50-1,01 EACH PO (19:04)
[2020-05-21] MEDS ORDERED: PROTONIX40 MG PO (21:46)
== END 2020-05-21 22:14 | disposition home or self-care (01) ==
LOC: ED 18:25
DX: K30 Functional dyspepsia (principal); E11.9 Type 2 diabetes mellitus without complications; E78.00 Pure hypercholesterolemia, unspecified; I10 Essential (primary) hypertension; F17.200 Nicotine dependence, unspecified, uncomplicated; Z79.899 Other long term (current) drug therapy; Z79.82 Long term (current) use of aspirin; Z79.4 Long term (current) use of insulin
CPT/HCPCS: 74177; 80053; 81001; 83690; 85025; 99284-25; J2405; J7030; Q9967

== ENCOUNTER 2020-08-03 14:04 | Emergency (ER) | payer BC, MEDICARE ==
[~2020-08-03] VITALS: Ht 175.3 cm; Wt 73.9 kg
[~2020-08-03 14:04] MED LIST changes: +JANUMET 50-1,01 EACH PO; +PROTONIX40 MG PO
[2020-08-03] MEDS ORDERED: BASAGLAR K100 UNIT/1 SQ (14:39)
[2020-08-03] MEDS ORDERED: METFORMIN HCL500 M1 PO (14:40)
[2020-08-03] MEDS ORDERED: PROTONIX40 MG PO (17:39)
== END 2020-08-03 17:56 | disposition home or self-care (01) ==
LOC: ED 14:04
DX: K21.9 Gastro-esophageal reflux disease without esophagitis (principal); E11.9 Type 2 diabetes mellitus without complications; E78.00 Pure hypercholesterolemia, unspecified; I10 Essential (primary) hypertension; F17.200 Nicotine dependence, unspecified, uncomplicated; Z88.8 Allergy status to other drugs, medicaments and biological substances; Z79.4 Long term (current) use of insulin; Z79.82 Long term (current) use of aspirin
CPT/HCPCS: 80053; 83690; 85025; 96374; 96375; 99284-25; C9113

== ENCOUNTER 2020-09-24 09:40 | Day surgery (SDC) | payer BC, MEDICARE ==
[~2020-09-24] VITALS: Ht 175.3 cm; Wt 74.0 kg
[~2020-09-24 09:40] MED LIST changes: +BASAGLAR K100 UNIT/1 SQ; +CARAFATE1 GM; +METFORMIN HCL500 M1 PO; +OZEMPIC0.25 MG/0.
--- NOTE | 2020-09-24 13:03 | NUR ---
09/24/20 1303 Marcia Flores 1258 PATIENT ARRIVES TO PACU SLEEPING. OPENS EYES WITH VERBAL STIMULI. REPOSITIONS SELF, BACK TO SLEEP WHEN NOT STIMULATED. RESP EVEN AND UNLABORED, NC AT 6 LITERS, DECREASED TO 4 LITERS.
--- NOTE | 2020-09-25 07:42 | OR ---
[facility] [address] [place], [place] [address] Signed DATE OF OPERATION: 09/24/2020 SURGEON: Kiersten Diamond MD PREOPERATIVE DIAGNOSES: 1. Epigastric abdominal pain. 2. Globus (larynx). 3. History of gastritis and shallow ulcerations in 2019. 4. Personal history of colonic polyps in 2009 (age 54). 5. Personal history of colonic polyps in 2015 (age 60) with tattoo distal right colon. 6. Incision and drainage of perianal abscess in 2006. Dr. Khurram Duron. POSTOPERATIVE DIAGNOSES: 1. Multiple small pyloric bulb ulcerations/erosions. 2. Moderate gastroduodenitis. 3. A small hiatal hernia. 4. Minimal internal hemorrhoids. 5. 4 mm polyps x3 at 7 cm. 6. 7 mm polyp distal right colon. 7. 7 mm polyp proximal transverse colon. 8. 8 mm polyp at 95 cm. 9. 10 mm polyp at 75 cm. 10. 3 mm polyp at 70 cm. 11. 4 mm polyp at 18 cm (sigmoid). PROCEDURE: 1. EGD with CLOtest and biopsies of the pyloric bulb, antrum and GE junction. 2. Colonoscopy with hot biopsies. ESTIMATED BLOOD LOSS: None. INDICATIONS: Jayro is a 65-year-old gentleman, who has a long medical history as listed in the history and physical. He has been through multiple upper and lower endoscopies. He talked about Dr. Beltran in 2009 for his colonoscopy with small polyps taken out of the rectosigmoid junction. Unfortunately that pathology report has not been available. He had a colonoscopy in 2015 with myself and a 2 cm sessile polyp came out of the distal right colon. We placed a tattoo at that area. He had a smaller polyp removed at 25 cm. He had an upper endoscopy with Dr. Alfaro in September of 2019 with gastritis and Electronically Signed By: KIERSTEN DIAMOND MD 09/25/20 0742 PATIENT NAME: JAYRO SCALES OPERATIVE REPORT DATE OF : 59 REPORT #: [id number] PHYSICIAN: KIERSTEN DIAMOND MD PCP: BRAD AMADOR MD REPORT IS CONFIDENTIAL AND NOT TO BE RELEASED WITHOUT AUTHORIZATION [facility] [address] [place], [place] [address] Signed superficial erosions. The H pylori was negative. He continues to feel a sense of globus at the larynx. He has epigastric abdominal pain. He said eating does not seem to bother him. He has been on Prilosec and sucralfate recently. He does not feel the sucralfate has helped his symptoms. He talked about incision and drainage of a perianal abscess with Dr. Khurram Duron back in . He said he has no lower GI complaints currently. He gives no specific family history of colon cancer or polyps. In the office, I gave him pamphlets on both upper and lower endoscopy. We had reviewed the nature of the two tests along with the risks including, but not limited to gas bloating, crampy abdominal pain, bleeding, perforation requiring surgery, and missed diagnosis. We also reviewed the fact that he has significant past medical history. In addition, he took 12 mg of Versed and 200 mcg of fentanyl just for a colonoscopy previously. In that regard, we asked an anesthesia provider to help us with increased monitoring and sedation with propofol on this occasion. He had expressed understanding and wished to proceed. DESCRIPTION OF PROCEDURE: Jayro was taken into our endoscopy suite and placed in the supine semi-recumbent position. The posterior oropharynx was anesthetized with lidocaine spray. A bite block was utilized for the case. He was given IV sedation with propofol per our nurse code clerk. The adult gastroscope was introduced and advanced out into the third portion of the duodenum under direct visualization of the camera without difficulty. The duodenum was quite healthy. The pyloric channel was not healthy. It was erythematous and multiple superficial shallow ulcerations and ulcers. At least 4 that I could count. We took a biopsy of the pyloric bulb for pathologic review. The antrum and stomach showed some mild inflammatory changes but no ulcerations. We took a biopsy of the antrum for CLOtest as well as pathologic review. Upon retroflexion of the scope, it looks like he has just a small hiatal hernia. There were no gastric or esophageal varices. The scope was withdrawn up through the area of the GE junction, which was compliant without stricture. Minimal disruption at the Z-line with a little erythematous changes in the distal esophagus. We went ahead and took a biopsy along the GE junction for pathologic review. The middle and upper esophagus were unremarkable. After this, the gas was suctioned out, gastroscope removed. Jayro tolerated his upper endoscopy quite well. Jayro was rotated into the left lateral decubitus position. He was maintained on IV sedation with propofol per our nurse code clerk. A digital rectal exam was performed. This was unremarkable. He had good sphincter tone. The adult colonoscope was introduced, advanced all around into the cecum under direct visualization of camera. It took just a little abdominal compression in order to advance the scope. His prep was quite good. We could easily see the appendiceal orifice and the ileocecal valve. The scope was slowly withdrawn. The above-mentioned polyps were completely removed with the help of hot biopsy forceps. We did see the tattoo in the distal right colon. The polyp Electronically Signed By: KIERSTEN DIAMOND MD 09/25/20 0742 PATIENT NAME: JAYRO SCALES OPERATIVE REPORT DATE OF : 59 REPORT #: [id number] PHYSICIAN: KIERSTEN DIAMOND MD PCP: BRAD AMADOR MD REPORT IS CONFIDENTIAL AND NOT TO BE RELEASED WITHOUT AUTHORIZATION [facility] [address] [place], [place] [address] Signed on this occasion was a few cm distal to that polyp. I suspect that is a new polyp. We saw no diverticulosis. The scope had been retroflexed in the rectum and he had minimal to moderate internal hemorrhoid columns. After this, the gas was suctioned out colonoscope removed. Jayro tolerated the procedure quite well. RECOMMENDATIONS: I will see Jayro back in my office in 7 to 14 days to review his results. Kiersten Diamond MD ALB/MODL /[id number] cc: Dr. Abby Diamond MD Copies: KIERSTEN DIAMOND MD ~ Electronically Signed By: KIERSTEN DIAMOND MD 09/25/20 0742 PATIENT NAME: JAYRO SCALES OPERATIVE REPORT DATE OF : 59 REPORT #: [id number] PHYSICIAN: KIERSTEN DIAMOND MD PCP: BRAD AMADOR MD REPORT IS CONFIDENTIAL AND NOT TO BE RELEASED WITHOUT AUTHORIZATION
--- NOTE | 2020-09-27 16:42 | PATH ---
[facility] [address] [place], [place] [address] Signed SPECIMEN(S): A DUODENAL BULB BIOPSY SPECIMEN(S): B ANTRUM/PYLORUS BIOPSY SPECIMEN(S): C GE JUNCTION SPECIMEN(S): D RECTAL POLYP AT 7 CM SPECIMEN(S): E ASCENDING DISTAL COLON POLYP SPECIMEN(S): F TRANSVERSE COLON POLYP SPECIMEN(S): G COLON POLYP AT 95 CM SPECIMEN(S): H COLON POLYP AT 75 CM SPECIMEN(S): I COLON POLYP AT 70 CM SPECIMEN(S): J COLON POLYP AT 18 CM SPECIMEN SOURCE: A. DUODENAL BULB BIOPSY B. ANTRUM/PYLORUS BIOPSY C. GE JUNCTION D. RECTAL POLYP AT 7 CM E. ASCENDING DISTAL COLON POLYP F. TRANSVERSE COLON POLYP G. COLON POLYP AT 95 CM H. COLON POLYP AT 75 CM I. COLON POLYP AT 70 CM J. COLON POLYP AT 18 CM CLINICAL HISTORY: Epigastric pain, history of polyps. Postop: Mild gastritis, gastroduodenitis, duodenal ulcers; colon and rectal polyps, internal hemorrhoids. MICROSCOPIC DESCRIPTION: Histologic sections of all submitted blocks are examined by light microscopy. These findings, together with the gross examination, support the pathologic diagnosis. FINAL PATHOLOGIC DIAGNOSIS: A. Duodenum, bulb, biopsy: - Duodenal mucosa with mucosal erosion and mucosal capillary congestion. - Negative for Helicobacter organisms on HE stain, see Comment. - Negative for increased intraepithelial lymphocytes. - Negative for dysplasia or malignancy. B. Stomach, antrum/pylorus, biopsy: - Antral mucosa with minimal chronic, inactive gastritis. - Negative for Helicobacter organisms on HE stain. - Negative for dysplasia or malignancy. PATIENT NAME: GIN SCALES PATHOLOGY DATE OF : 59 REPORT #: [id number] PHYSICIAN: MARSHAL CRESPO PCP: BRAD AMADOR MD REPORT IS CONFIDENTIAL AND NOT TO BE RELEASED WITHOUT AUTHORIZATION [facility] [address] [place], [place] [address] Signed C. Gastroesophageal junction, biopsy: - Squamocolumnar junctional mucosa with chronic inflammation and reactive epithelial changes, consistent with reflux esophagitis. - Negative for intestinal metaplasia, dysplasia or malignancy. D. Rectum, polyp at 7 cm, polypectomy: - Hyperplastic polyp. - Negative for dysplasia or malignancy. E. Colon, distal ascending, polyp, polypectomy: - Tubular adenoma. - Negative for high-grade dysplasia or malignancy. F. Colon, transverse, polyp, polypectomy: - Tubular adenoma. - Negative for high-grade dysplasia or malignancy. G. Colon, polyp at 95 cm, polypectomy: - Tubular adenoma. - Negative for high-grade dysplasia or malignancy. H. Colon, polyp at 75 cm, polypectomy: - Fragments of tubular adenoma. - Negative for high-grade dysplasia or malignancy. I. Colon, polyp at 70 cm, polypectomy: - Colonic mucosa with no histopathologic abnormality. - Negative for dysplasia or malignancy. J. Colon, polyp at 18 cm, polypectomy: - Hyperplastic polyp. - Negative for dysplasia or malignancy. COMMENT: Regarding specimen A: An H. pylori immunohistochemical stain is pending and the results will be reported in an addendum. NAL:NRT:cml:C2NR GROSS DESCRIPTION: Ten specimens are received in ten containers, labeled "HZ." A. The specimen, labeled "HZ, duodenal bulb biopsy," is received in formalin and consists of two morton soft tissue fragment(s) that measure 0.2-0.3 cm in greatest dimension. The specimen is entirely submitted in cassette (A1). B. The specimen, labeled "HZ, antrum biopsy," is received in formalin and consists of one morton soft tissue fragment that measures 0.2 cm in greatest dimension. The specimen is entirely submitted in cassette (B1). PATIENT NAME: GIN SCALES PATHOLOGY DATE OF : 59 REPORT #: [id number] PHYSICIAN: MARSHAL CRESPO PCP: BRAD AMADOR MD REPORT IS CONFIDENTIAL AND NOT TO BE RELEASED WITHOUT AUTHORIZATION [facility] [address] [place], [place] [address] Signed C. The specimen, labeled "HZ, GE junction biopsy," is received in formalin and consists of one morton soft tissue fragment that measures 0.2 cm in greatest dimension. The specimen is entirely submitted in cassette (C1). D. The specimen, labeled "HZ, rectal polyp at 7 cm," is received in formalin and consists of five morton soft tissue fragment(s) that measure 0.1-0.2 cm in greatest dimension. The specimen is entirely submitted in cassette (D1). E. The specimen, labeled "HZ, distal ascending colon polyp," is received in formalin and consists of two morton soft tissue fragment(s) that measure 0.1-0.2 cm in greatest dimension. The specimen is entirely submitted in cassette (E1). F. The specimen, labeled "HZ, transverse colon polyp," is received in formalin and consists of one morton soft tissue fragment that measures 0.2 cm in greatest dimension. The specimen is entirely submitted in cassette (F1). G. The specimen, labeled "HZ, colon polyp at 95 cm," is received in formalin and consists of one morton soft tissue fragment that measures 0.2 cm in greatest dimension. The specimen is entirely submitted in cassette (G1). H. The specimen, labeled "HZ, colon polyp at 75 cm," is received in formalin and consists of five morton soft tissue fragment(s) that measure 0.1-0.2 cm in greatest dimension. The specimen is entirely submitted in cassette (H1). I. The specimen, labeled "HZ, colon polyp at 70 cm," is received in formalin and consists of one morton soft tissue fragment that measures 0.1 cm in greatest dimension. The specimen is entirely submitted in cassette (I1). J. The specimen, labeled "HZ, colon polyp at 18 cm," is received in formalin and consists of one morton soft tissue fragment that measures 0.2 cm in greatest dimension. The specimen is entirely submitted in cassette (J1). JS (under the direct supervision of a pathologist) The Gross Description was prepared using a voice recognition system. The report was reviewed for accuracy; however, sound-alike word errors, addition and/or deletions may occur. If there is any question about this report, please contact Client Services. PERFORMING LABORATORY: The technical component was performed by [facility], [address] [place] [address] Way, PATIENT NAME: GIN SCALES PATHOLOGY DATE OF : 59 REPORT #: [id number] PHYSICIAN: HENOK[facility] PATHOLOGY PCP: BRAD AMADOR MD REPORT IS CONFIDENTIAL AND NOT TO BE RELEASED WITHOUT AUTHORIZATION [facility] [address] [place], [place] [address] [place] [id number] (Beauty Culturist Apprentice: Iwona Ibarra MD; CLIA# [id number]). Professional [facility] [address] [address] (CLIA# [id number]). Diagnostician: Danay Rivera MD Pathologist Electronically Signed 09/27/2020 Copies: ~ PATIENT NAME: GIN SCALES PATHOLOGY DATE OF : 59 REPORT #: [id number] PHYSICIAN: MARSHAL PATHOLOGY PCP: BRAD AMADOR MD REPORT IS CONFIDENTIAL AND NOT TO BE RELEASED WITHOUT AUTHORIZATION
== END 2020-09-24 13:35 | disposition home or self-care (01) ==
LOC: OPS 09:40 → DS 09:40 → OPS 12:15 → DS 13:00 → OPS 13:35
PROVIDERS: ATTEND Colon & Rectal Surgery
PROC: 0DBK8ZX Excision of Ascending Colon, Via Natural or Artificial Opening Endoscopic, Diagnostic (ICD-10-PCS; 2020-09-24)
PROC: 0DBE8ZX Excision of Large Intestine, Via Natural or Artificial Opening Endoscopic, Diagnostic (ICD-10-PCS; 2020-09-24)
PROC: 0DBL8ZX Excision of Transverse Colon, Via Natural or Artificial Opening Endoscopic, Diagnostic (ICD-10-PCS; 2020-09-24)
PROC: 0DBP8ZX Excision of Rectum, Via Natural or Artificial Opening Endoscopic, Diagnostic (ICD-10-PCS; 2020-09-24)
PROC: 0DB48ZX Excision of Esophagogastric Junction, Via Natural or Artificial Opening Endoscopic, Diagnostic (ICD-10-PCS; principal; 2020-09-24 12:15)
PROC: 0DB78ZX Excision of Stomach, Pylorus, Via Natural or Artificial Opening Endoscopic, Diagnostic (ICD-10-PCS; 2020-09-24 12:15)
DX: K26.9 Duodenal ulcer, unspecified as acute or chronic, without hemorrhage or perforation (principal); K29.50 Unspecified chronic gastritis without bleeding; K29.90 Gastroduodenitis, unspecified, without bleeding; D12.2 Benign neoplasm of ascending colon; D12.3 Benign neoplasm of transverse colon; K62.1 Rectal polyp; K44.9 Diaphragmatic hernia without obstruction or gangrene; K64.8 Other hemorrhoids; I10 Essential (primary) hypertension; E11.9 Type 2 diabetes mellitus without complications; K21.9 Gastro-esophageal reflux disease without esophagitis; M19.90 Unspecified osteoarthritis, unspecified site; E78.5 Hyperlipidemia, unspecified; F17.210 Nicotine dependence, cigarettes, uncomplicated; Z79.4 Long term (current) use of insulin; Z88.6 Allergy status to analgesic agent; Z86.010 Personal history of colon polyps; Z79.82 Long term (current) use of aspirin
CPT/HCPCS: J2704; J7121

== ENCOUNTER 2023-04-27 22:06 | Emergency (ER) | payer BC, MEDICARE ==
[~2023-04-27] VITALS: Ht 175.3 cm; Wt 74.4 kg
[~2023-04-27 22:06] MED LIST changes: +DICYCLOMINE HCL10 MG PO; +LANTUS100 UNITS/; +OMEPRAZOLE20 MG PO
[2023-04-27] MEDS ORDERED: REPAGLINIDE0.5 MG PO (22:36)
[2023-04-27 22:49] LABS: BASOPHILS 0.4 % (0-2); EOSINOPHILS 1.5 % (0-6); HEMATOCRIT 45.7 % (35.0-50.0); HEMOGLOBIN 15.8 g/dL (12.0-18.0); LYMPHOCYTES 28.4 % (24-44); MCH 32.1 (27-36); MCHC 34.6 g/dl (30-36); MCV 92.7 fl (81-99); MONOCYTES 6.7 % (0-12); PLATELET COUNT 189 K/uL (140-440); RBC 4.93 M/ul (4.3-5.7); RDW 13.2 (10.5-15.0)
[2023-04-27 22:58] LABS: ALBUMIN 4.4 g/dL (3.4-5.0); ALBUMIN/GLOBULIN RATIO 1.57 (1.1-2.4); ANION GAP 9.8 (7-21); BILIRUBIN, TOTAL 0.4 ng/dL (0.2-1.0); BUN/CREATININE RATIO 15.29 (6.0-28.6); CALCIUM 9.1 mg/dL (8.5-10.1); CREATININE, SERUM 0.85 mg/dL (0.70-1.30); POTASSIUM 3.8 mmol/L (3.5-5.1); PROTEIN, TOTAL 7.2 g/dL (6.4-8.2)
[2023-04-27] MEDS ORDERED: ONDANSETRON ODT8 MG PO (23:36)
[2023-04-27] MEDS ORDERED: HYDROCODON-ACE1 EA10 PO (23:36)
[2023-04-27 23:41] VITALS: BP 136/82
== END 2023-04-27 23:51 | disposition home or self-care (01) ==
LOC: ED 22:06
PROVIDERS: Family Medicine
DX: K85.90 Acute pancreatitis without necrosis or infection, unspecified (principal); F17.200 Nicotine dependence, unspecified, uncomplicated; E11.9 Type 2 diabetes mellitus without complications; E78.00 Pure hypercholesterolemia, unspecified; I10 Essential (primary) hypertension; Z79.4 Long term (current) use of insulin; Z88.6 Allergy status to analgesic agent
CPT/HCPCS: 36415; 80053; 83690; 85025; 96374; 96375; 99284-25; C9113; J2405; J7030